=== PATIENT | female | born 1970 | race Caucasian/White ===

== ENCOUNTER 2021-11-07 10:15 | Emergency (ER) | payer OTHER ==
--- OUTSIDE RECORDS SUMMARY | 2021-11-07 10:19 | XMS REPORT | Continuity of Care Document ---
:1970 Author Organization [facility] t Address [address] [place] [address] Care Team Providers Name Role Phone PCP, PATIENT DOES NOT HAVE A Primary Care Physician Unavaila LISETTE Valerio Attending Clinician Unavailable LISETTE DALY Attending Clinician Unavailable Doctor Unassigned, [place] Attending Clinician Unavailable Only, Pcp Test Attending Clinician Unavailable Wayne LECHUGA, Andrea Tillman Attending Clinician Marco Causey MD Attending Clinician DEBRA HOBBS Attending Clinician Unavailable Raquel Tejeda Attending Clinician Debra Hobbs MD Attending Clinician Yue Kim MD Attending Clinician YUE KIM Attending Clinician Unavailable DEBRA HOBBS Admitting Clinician Unavailable Debra Hobbs MD Admitting Clinician Payers Payer Name Policy Type Policy Number Effective Date Expiration Date S ource [employer] [id number] 2021 OUT OF NETWORK 00:00:00 Problems Condition Condition Condition Status Onset Resolution Last Treating Co mments Source Name Details Category Date Date Treatment Clinician Date Elevated Elevated Disease Active 2020-02 Unive rs brain brain 1-27 ity of natriure[place] nat[place] c peptide c peptide 00 Medi cha (BNP) (BNP) Branch level level Chest pain Chest pain Disease Active 2020-02 U nivers 1-26 ity of 00:00: [place] [facility] Obesity Obesity Disease Active 2020-02 Univers (BMI (BMI 1-26 ity of 30-39.9) 30-39.9) 00:00: [place] [facility] Nipple Nipple Disease Active Univers discharge discharge 6-14 ity of 00:00: [place] [facility] Lump or Lump or Disease Active Univers mass in mass in 6-14 ity of breast breast 00:00: [place] [facility] Vaginal Vaginal Disease Active Univers spotting spotting 6-14 ity of 00:00: [place] [facility] Vaginal Vaginal Disease Active Univers discharge discharge 6-14 ity of 00:00: [place] [id number] Medical Branch Essential Essential Disease Active Uni vers hypertensi hypertensi 5-19 it y of on on 00:00: [place] [facility] Bleeding Bleeding Disease Active Unive rs after after 5-19 ity of intercours intercours 00:[place] 00 [place] Nipple Nipple Disease Active Univers discharge discharge 5-19 ity of in female in female 00:00: [facility] Medical Branch Allergies, Adverse Reactions, Alerts Allergy Allergy Status Severity Reaction(s) Onset Inactive Treating Comm ents Source Name Type Date Date Clinician diazepam DA Active U [facility] 10-24 Clear 00:00: Dye [facility] nickel DA Active [place] [facility] 10-24 Clear 00:00: Dye [facility] diazepam DA Active U HYPERACTIVIT HC A Y,ITCHING,HI 10-24 Anna r VES 00:00: Dye [facility] nickel DA Active [place] ITCHINESS, [facility] RASH, HIVES 10-24 Clear 00:00: Dye [facility] Diazepam Propensi Active Unknown - Uni vers ty to See comments 08-12 ity of adverse 00:00: [place] reaction 00 Medical s Branch DIAZEPAM DRUG Active Unknown-Cmnt Un filomena INGREDI 08-12 ity of 00:00: [place] 00 Medical Branch Social History Social Habit Start Date Stop Date Quantity Comments Source Exposure to Not sure [facility] SARS-CoV-2 (event) [place] [facility] [place] History SDOH University o f [facility] History SDOH University o f Alcohol Std Drinks [place] [facility] [place] History SDOH University o f Alcohol Binge [facility] al [place] Alcohol intake 2021-01-13 2021-01-13 0 /d University of 00:00:00 00:00:00 [facility] Alcohol Comment 2015-08-01 2015-08-01 Only drinks Universi ty of 00:00:00 00:00:00 about once a [facility] year. Branch Cigarettes smoked 2014-07-05 2014-07-05 Univers ity of current (pack per 00:00:00 00:00:00 [facility] ) - Reported Branch Cigarette 2014-07-05 2014-07-05 University of pack-years 00:00:00 00:00:00 [facility] Tobacco use and 2014-07-05 2014-07-05 Never used Universit y of exposure 00:00:00 00:00:00 [facility] History of tobacco 2014-07-05 Cigarette Smoker University of use 00:00:00 [facility] Sex Ass[birth year] At [birth year] [facility] 00:[facility]00 [facility] Smoking Status Start Date Stop Date Source [facility] consumption unknown Former smoker 2014-07-05 00:00:00 2014-07-05 University o f [place] 00:00:00 [facility] Medications Ordered Filled Start Stop Current Ordering Indication Dosage Frequency Signature Comments Components Source Medication Medication Date Date Medication? Clinician (SIG) Name Name aspirin 81 2020-02- No [id number] 81mg Take 1 Univers mg chewable 1-28 12-29 tablet by it y of tablet 00:00: 05:59 mouth [place] 00 :00 daily for Medical 30 days. Branch lisinopriL 2020-02- No [id number] 10mg Take 1 Univers 10 mg 1-28 12-29 tablet by ity of tablet 00:00: 05:59 mouth [place] 00 :00 daily for Medical 30 days. Jerome aspirin 81 2020-02- No [id number] 81mg Take 1 Univers mg chewable 03-16- tablet by it y of tablet 00:00: 05:59 mouth [place] 00 :00 daily for Medical 30 days. Branch lisinopriL 2020-02- No [id number] 10mg Take 1 Univers 10 mg 03-16-29 tablet by ity of tablet 00:00: 05:59 mouth [place] 00 :00 daily for Medical 30 days. Jerome aspirin 81 2020-02- No [id number] 81mg Take 1 Univers mg chewable 03-16- tablet by it y of tablet 00:00: 05:59 mouth [place] 00 :00 daily for Medical 30 days. [place] lisinopriL 2020-02- No [id number] 10mg Take 1 Univers 10 mg 03-16 tablet by ity of tablet 00:00: 05:59 mouth [place] 00 :00 daily for Medical 30 days. [place] aspirin 2020-02 Yes 81mg 81 mg, Univers chewable 03-15 Oral, ity of tablet 81 15:00: DAILY, [place] mg 00 First dose Medical on [facility] 01/13/21 at 0900, Until Discontinu ed, Routine enoxaparin 2020-02 Yes 40mg 40 mg, Unive rs (LOVENOX) 03-15 Subcutaneo ity of injection 15:00: [place], [place]ILY, [place] 40 mg 00 First dose Medical on [facility] 01/13/21 at 0900, Until Discontinu ed, Routine lisinopriL 2020-02 Yes 10mg 10 mg, Unive rs (PRINIVIL,Z 03-15 Oral, ity of ESTRIL) 15:00: DAILY, [place] tablet 10 00 First dose Medi cha mg on [facility] 01/13/21 at 0900, Until Discontinu ed, Routine butalbital- 2020-02 Yes 1{tbl} 1 tablet, Univers acetaminoph 03-15 Oral, ity of en-caff 09:16: Q6HPRN, [place] (ESGIC) 24 Starting Medical 50-325-40 on [facility] mg tablet 1 01/13/21 tablet at 0316, Until Discontinu ed, Routine, headache nitroglycer 2020-02 Yes .4mg 0.4 mg, Uni vers in 03-15 Sublingual ity of (NITROSTAT) 04:38: , Q5MIN [place] as sublingual 53 PRN, Medical tablet 0.4 Starting Branc h mg on Fri01/12/21 at 2238, Until Discontinu ed, Routine, Chest pain ondansetron 2020-02 Yes 4mg 4 mg, Slow Univers (ZOFRAN 03-15 IV Push, ity of (PF)) 04:38: Q6HPRN, [place] injection 4 38 Starting Medi cha mg on Fri Branch 01/12/21 at 2238, Until Discontinu ed, Routine, Nausea and Vomiting (N/V) morpHINE 2020-02- No 2mg 2 mg, Slow Un filomena injection 2 03-15 IV Push, ity of mg 04:38: 04:37 Q4HPRN, [place] 30 :30 Starting Medical on Fri Branch 01/12/21 at 2238, Until 01/13/21 at 2237, Routine, Pain (scale 7-10) traMADoL 2020-02- No 50mg 50 mg, Univer s (ULTRAM) 03-15 Oral, ity of tablet 50 04:38: 04:37 Q8HPRN, [place] mg 27 :27 Starting Medical on Fri Branch 01/12/21 at 2238, Until 01/14/21 at 2237, Routine, Pain (scale 4-6) acetaminoph 2020-02 Yes 650mg 650 mg, Un filomena en 03-15 Oral, ity of (TYLENOL) 04:38: Q6HPRN, [place] tablet 650 23 Starting Medic al mg on Fri Branch 01/12/21 at 2238, Until Discontinu ed, Routine, Pain (scale 1-3) ketorolac 2020-02- No 30mg 30 mg, Unive rs (TORADOL) 03-15 Slow IV ity of injection 03:15: 02:12 Push, [place] 30 mg 00 :00 ONCE, 1 Medical dose, On Branch Fri01/12/21 at 2115, MAREK
Fa culty member approving Restricted medication : EMERGENCY ROOM, nitroglycer 2020-02- No .4mg 0.4 mg, Un filomena in 03-15 Sublingual ity of (NITROSTAT) 02:30: 01:57 , ONCE, 1 [place] sublingual 00 :00 dose, On Medic al tablet 0.4 Fri Branch mg 01/12/21 at 2030, MAREK aspirin 2020-02- No 325mg 325 mg, Unive rs tablet 325 03-15 Oral, ity of mg 01:00: 00:06 ONCE, 1 [place] 00 :00 dose, On Medical Fri Branch 01/12/21 at 1900, MAREK iopamidol 2020-02- No [id number] 120mL 120 mL, Univers (ISOVUE 03-15 Intravenou ity o f 370-500 mL) 00:32: 00:33 s, ONCE, 1 [place] injection 00 :00 dose, On Medica l 120 mL Fri Branch 01/12/21 at 1845, Routine nitroglycer 2020-[id number] 1 Univers in 0.4 mg 03-15 tablet ity of sublingual 00:00: under the [place] tablet 00 tongue Medical every 5 Branch (five) minutes as needed for Chest pain. nitroglycer 2020-[id number] 1 Univers in 0.4 mg -27 tablet ity of sublingual 00:00: under the [place] tablet 00 tongue Medical every 5 Branch (five) minutes as needed for Chest pain. nitroglycer 2020-[id number] 1 Univers in 0.4 mg -27 tablet ity of sublingual 00:00: under the [place] tablet 00 tongue Medical every 5 Branch (five) minutes as needed for Chest pain. nitroglycer 2020-[id number] 1 Univers in 0.4 mg -27 tablet ity of sublingual 00:00: under the [place] tablet 00 tongue Medical every 5 Branch (five) minutes as needed for Chest pain. atorvastati 2020-02- No [id number] 40mg Take 1 Univers n (LIPITOR) 03-15 12-28 tablet by it y of 40 mg 00:00: 05:59 mouth at [place] tablet 00 :00 bedtime Medical for 30 Branch days. atorvastati 2020-02- No [id number] 40mg Take 1 Univers n (LIPITOR) 03-15 tablet by it y of 40 mg 00:00: 05:59 mouth at [place] tablet 00 :00 bedtime Medical for 30 Branch days. lisinopril Yes TAKE 1 Unive rs (PRINIVIL,Z 6 TABLET BY ity of ESTRIL) 10 00:00: MOUTH [place] mg tablet 00 EVERY DAY Medic al Branch lisinopril 2020- No TAKE 1 Univ ers (PRINIVIL,Z 6-10 28- TABLET BY it y of ESTRIL) 10 00:00: 00:00 MOUTH [place] mg tablet 00 :00 EVERY DAY Medic al Branch Nitrofurant Yes 100mg Take 1 Cap Univers oin&Nit. 6-05 by mouth ity of Macrocryst 00:00: every 12 [place] as (MACROBID) 00 (twelve) Medic al 100 mg hours. Branch capsule Nitrofurant 2020- No 100mg Take 1 Cap Univers oin&Nit. 6-05 01-13 by mouth ity of Macrocryst 00:00: 00:00 every 12 [place] (MACROBID) 00 :00 (twelve) Medic al 100 mg hours. Branch capsule metroNIDAZO Yes 500mg Take 1 Tab Univers LE (FLAGYL) - by mouth 2 it y of 500 mg 00:00: (two) [place] tablet 00 times Medical daily. Branch metroNIDAZO 2020- No 500mg Take 1 Tab Univers LE (FLAGYL) -01-13 by mouth 2 i ty of 500 mg 00:00: 00:00 (two) [place] tablet 00 :00 times Medical daily. [place] Vital Signs Vital Name Observation Time Observation Value Comments Source Systolic blood 2021-01-13 17:12:00 138 mm[Hg] Univer sity of pressure [facility] Diastolic blood 2021-01-13 17:12:00 88 mm[Hg] Unive rsity of pressure [facility] Heart rate 2021-01-13 17:12:00 77 /min Universi ty of [facility] Body temperature 2021-01-13 17:12:00 36.67 [place] Univ ersity of [facility] Respiratory rate 2021-01-13 17:12:00 16 /min Univ ersity of [place] [facility] Oxygen saturation in 2021-01-13 17:12:00 98 /min University of Arterial blood by [place] [facility] Pulse oximetry Branch Body height 2021-01-13 04:34:00 142.2 cm Universi ty of [place] [facility] Body weight 2021-01-13 04:34:00 68.04 kg Universi ty of [place] [facility] BMI 2021-01-13 04:34:00 33.63 kg/m2 Universi ty of [place] [facility] Systolic blood 2020-03-17 02:56:24 141 mm[Hg] Univer sity of pressure [place] [facility] Diastolic blood 2020-03-17 02:56:24 86 mm[Hg] Unive rsity of pressure [place] [facility] Heart rate 2020-03-17 02:56:24 97 /min Universi ty of [place] [facility] Body temperature 2020-03-17 02:56:24 36.78 [place] Univ ersity of [place] [facility] Respiratory rate 2020-03-17 02:56:24 18 /min Univ ersity of [place] [facility] Oxygen saturation in 2020-03-17 02:56:24 99 /min University of Arterial blood by [facility] Pulse oximetry Branch Body height 2020-03-17 00:51:00 154.9 cm Universi ty of [place] [facility] Body weight 2020-03-17 00:51:00 61.236 kg Universi ty of [place] [facility] BMI 2020-03-17 00:51:00 25.51 kg/m2 Universi ty of [place] [facility] Systolic blood 2020-03-17 02:56:24 141 mm[Hg] Univer sity of pressure [place] [facility] Diastolic blood 2020-03-17 02:56:24 86 mm[Hg] Unive rsity of pressure [place] [facility] Heart rate 2020-03-17 02:56:24 97 /min Universi ty of [place] [facility] Body temperature 2020-03-17 02:56:24 36.78 [place] Univ ersity of [place] [facility] Respiratory rate 2020-03-17 02:56:24 18 /min Univ ersity of [place] [facility] Oxygen saturation in 2020-03-17 02:56:24 99 /min University of Arterial blood by [facility] cha Pulse oximetry Branch Body height 2020-03-17 00:51:00 154.9 cm [facility] Body weight 2020-03-17 00:51:00 61.236 kg [facility] BMI 2020-03-17 00:51:00 25.51 kg/m2 [facility] Procedures Procedure Date / Time Performing Clinician Source Performed ASSIGNMENT OF BENEFITS 2021-04-13 18:53:47 Doctor Unassigned, No [facility] Name [facility] TROPONIN I 2021-01-13 11:55[facility]00 [facility]OLIC [facility] 2021-01-13 11:55:00 [facility] (NA, K, CL, CO2, Medical Branch GLUCOSE, BUN, CREATININE, CA) LIPID PANEL 2021-01-13 11:55:00 [facility] ([id number])(TOTAL Medical Branch CHOLESTEROL, TRIGLYCERIDES, HDL) CBC WITH DIFF 2021-01-13 11:55:00 [facility] GLYCOSYLATED HEMOGLOBIN 2021-01-13 11:55:00 Broderick Russell [facility] (A1C) [facility] CT HEAD WO CONTRAST 2021-01-13 09:43:33 [facility] 2021-01-13 06:10:00 [facility] COVID-19 (ID NOW RAPID 2021-01-13 02:17:00 [facility] TESTING) Medical Branch URINALYSIS 2021-01-13 01:54:00 [facility]GIO[facility] CHEST 2021-01-13 00:38:00 Raquel George [facility] TROPONIN I 2021-01-13 00:23:00 [facility] HEPATIC FUNCTION PANEL 2021-01-13 00:23:00 [facility] ([id number]) (ALB,T.PRO,BILI Medical Branch T,BU/BC,ALT,AST,ALK PHOS) BASIC METABOLIC PANEL 2021-01-13 00:23:00 [facility] ([facility], K, CL, CO2, Medical Branch GLUCOSE, BUN, CREATININE, CA) CBC WITH DIFF 2021-01-13 00:23:00 Bety Georgeanne [facility] PROTHROMBIN TIME / INR 2021-01-13 00:23:00 Ariel [facility] D-DIMER 2021-01-13 00:23:00 [facility] 2021-01-13 00:23:00 Raquel George [facility] XR CHEST 1 VW 2021-01-13 00:08:17 Ariel [facility] CONSENT/REFUSAL FOR 2021-01-12 23:44:55 Doctor Unassigned, No [facility] DIAGNOSIS AND TREATMENT Name [facility] NOTICE OF PRIVACY 2021-01-12 23:44:42 Doctor Unassigned, No Univ [facility] PRACTICES Name [facility] COMP. METABOLIC PANEL 2020-03-17 03:10:00 Ulysses Walter [facility] ([id number]) [facility] XR CHEST 1 VW 2020-03-17 02:08:05 Phill [facility] LIPASE 2020-03-17 01:47:00 Phill [facility] TROPONIN I 2020-03-17 01:47:00 Phill [facility] CBC WITH DIFF 2020-03-17 01:47:00 Phill [facility] PROTHROMBIN TIME / INR 2020-03-17 01:47:00 Ulysses Walter [facility] ACTIVATED PARTIAL 2020-03-17 01:47:00 [facility] THRMPLAS ENRICO [facility] N-TERMINAL PRO-BNP 2020-03-17 01:47:00 Yue Kim [facility] Plan of Care Planned Activity Planned Date Details Comments Source Future Scheduled 2021-10-17 HEPATITIS B VACCINES [facility] Test 13:33:52 (1 of 3 - 3-dose series) [code = HEPATITIS B VACCINES (1 of 3 - 3-dose series)] Future Scheduled 2021-10-17 COVID-19 VACCINE (#1) [facility] Test 13:33:52 [code = COVID-19 VACCINE (#1)] Future Scheduled 2021-10-17 [facility] Test 13:33:52 malignant neoplasm of cervix (procedure) [code = 402939122] Future Scheduled 2021-10-17 [facility] 13:33:52 SCREENING [code = BREAST CANCER SCREENING] Future Scheduled 2021-10-17 COLONOSCOPY SCREENING [facility] Test 13:33:52 [code = COLONOSCOPY SCREENING] Future Scheduled 2021-10-17 INFLUENZA VACCINE [facility] Test 13:33:52 [code = INFLUENZA VACCINE] Encounters Start End Encounter Admission Attending Care Care Encounter Source Date/Time Date/Time Type Type Clinicians Facility Department ID 2020-03-16 Inpatient HCACL GUZMAN [id number] [facility] 22:55:00 98 [facility] 2021-04-13 2021-04-13 Outpatient LISETTE RAMIREZ [facility] [id number] Univers 13:00:00 14:01:[address] [facility] 2021-04-13 2021-04-13 Orders Doctor ULYSSES [id number] Univers 00:00:00 00:00:00 Only UnassNORMA haines [id number] ity of [place] [facility] [id number] [place] [phone] [facility] cha 009 Branch 2021-02-07 2021-02-07 Laboratory Only, Pcp Test [facility] 1.2.840. [id number] Univers 10:30:00 10:45:00 Only Andrea Black PRIMARY [id number] ity of [place] 4[place]7.2.686 [place] [facility] [id number] Tn dical 366 Branch 2021-01-14 2021-01-14 Telephone ULYSSES Causey [id number] Univers 00:00:00 00:00:00 Marco GREEN [id number] i ty of HOSPITAL 4.2.7.2.686 [place] [id number] [facility] hca 008 Branch 2021-01-12 2021-01-13 [facility] [id number] Univers 17:50:00 14:02:[address] [facility] 2021-01-12 2021-01-13 Emergency Raquel George [facility] 1.2.840 .[id number] Univers 17:50:00 14:02:00 Debra Hobbs [id number] ity of [place] 4.2.7.2.686 [facility] [id number] [place] [id number] Branch 2020-03-16 2020-03-16 Emergency [facility] [id number] Univers 19:02:00 22:42:00 [facility] [id number] it y of Clear [id number] [facility] [id number] [facility] 014 Branch ([facility]) 2020-03-16 2020-03-16 Emergency [facility] [id number] 19:02:00 22:42:00 [facility] [id number] [place] 4.2.7.2.686 [place] [phone] [place] [address] ([facility]) 2020-03-16 2020-03-16 Emergency X [facility] ERT [id number] Univers 19:02:00 19:02:00 [facility] Results Test Description Test Time Test Comments Results Result Comments Source GLYCOSYLATED HEMOGLOBIN (A1C) 2021-01-13 15:04:45 Test Item Value Reference Range Interpretation Comme nts HGB A1C (test code = 4548-4) 5.1 % 4.0-5.7 ANGLE (test code = ANGLE) Reference RangesNormal: <5.7%Prediabetes: 5.7 - 6.4%Diabetes: > 6.5% Lab Interpretation (test code = Normal 46215-0) [facility] [id number] 13:58:40 Test Item Value Reference Interpretation Comments Range TROPONIN I (test 0.001 ng/mL See_Comment [Automated code = 0575398947) message] The system which generated this result transmitted reference range : <=0.034. The reference range was not used to interpret this result as normal/abnormal . ANGLE (test code = Reference (Normal) ANGLE) Range (defined by the 99th percentile reference limit): <= 0.034 ng/mL Note: Cardiac troponin begins to rise 3-4 hours after the onset of ischemia. Repeat in 4-6 hours if the sample was drawn within 3-4 hours of the onset of the symptom and found normal. Diagnosis of myocardial injury is made with acute changes in cTn concentrations with at least one serial sample above the 99th percentile upper reference limit (URL), taken together with the patient's clinical presentation. Biotin has been reported to cause a negative bias, interpret results relative to patient's use of biotin. Lab Interpretation Normal (test code = 78881-3) [facility] ([id number])(TOTAL CHOLESTEROL, TRIGLYCERIDES, HDL)2021-01-13 13:48:00 Test Item Value Reference Range Interpretation Comments CHOL (test code = 207 mg/dL 120-200 H 2046940347) HDL (test code = 35 mg/dL >50 L 4092097274) HDLC RATIO (test code = See_Comment H [Au tomated message] [id number]) The system [employer] generated this result transmit krystin reference range : <=4.5. The refe rence range was not u sed to interpret th is result as normal/abnormal . TRIG (test code = 229 mg/dL 30-170 H 4313801322) LDL CHOL (test code = 126 mg/dL See_Comment [Auto mated message] 42102-5) The system [employer] generated this result transmit krystin reference range : <=160. The refe rence range was not u sed to interpret th is result as normal/abnormal . VLDL (test code = 46 mg/dL 5-60 2608017360) Lab Interpretation (test Abnormal code = 72391-1) [facility] (NA, K, CL, CO2, GLUCOSE, BUN, CREATININE, CA)2021-01-13 13:47:39 Test Item Value Reference Range Interpretation Comments NA (test code = 137 mmol/L 135-145 2871777219) K (test code = 4.2 mmol/L 3.5-5.0 7291849209) CL (test code = 105 mmol/L 98-108 2274745423) CO2 TOTAL (test code 26 mmol/L 23-31 = 6116153784) AGAP (test code = 2-16 3245978866) BUN (test code = 18 mg/dL 7-23 2246225214) GLUCOSE (test code = 86 mg/dL 70-110 8609137080) CREATININE (test code 0.58 mg/dL 0.50-1.04 = 2289432817) CALCIUM (test code = 9.5 mg/dL 8.6-10.6 7525538695) eGFR (test code = mL/min/1.73m2 1003684708) ANGLE (test code = ANGLE) Association of Glomerular Filtration Rate (GFR) and Staging of Kidney Disease* + + +- +| GFR (mL/min/1.73 m2) ?| With Kidney Damage ?| ?Without Kidney Damage+ ------+ ----+ ------+| ?>90 ?| ?Stage one ?| ? Normal ?+ -+ + -+| ?60-89 ?| ?Stage two ?| ? Decreased GFR ? + + +- +| ?30-59 ?| ?Stage three ?| ? Stage three ? + + +- +| ?15-29 ?| ?Stage four ? | ? Stage four ?+ -+ + -+| ?<15 (or dialysis) ? ?| ?Stage five ? | ? Stage five ?+ -+ + -+ *Each stage assumes the associated GFR level has been in effect for at least three months. ?Stages 1 to 5, with or without kidney disease, indicate chronic kidney disease. Notes: Determination of stages one and two (with eGFR >59mL/min/1.73 m2) requires estimation of kidney damage for at least three months as defined by structural or functional abnormalities of the kidney, manifested by either:Pathological abnormalities or Markers of kidney damage (including abnormalities in the composition of the blood or urine or abnormalities in imaging tests). [facility] with [id number] 13:04:15 Test Item Value Reference Range Interpretation Comments WBC (test code = See_Comment [Automated 6690-2) message] The sy stem which generated this result transmitted reference range : 4.30 - 11.10 10*3/?L. The reference range was not used to interpret this result as normal/abnormal . RBC (test code = See_Comment [Automated 789-8) message] The sy stem which generated this result transmitted reference range : 3.93 - 5.25 10*6/?L. The reference range was not used to interpret this result as normal/abnormal . HGB (test code = 13.1 g/dL 11.6-15.0 718-7) HCT (test code = 38.9 % 35.7-45.2 4544-3) MCV (test code = 92.4 fL 80.6-95.5 787-2) MCH (test code = 31.1 pg 25.9-32.8 785-6) MCHC (test code = 33.7 g/dL 31.6-35.1 786-4) RDW-SD (test code = 39.8 fL 39.0-49.9 57590-8) RDW-CV (test code = 11.9 % 12.0-15.5 L 788-0) PLT (test code = See_Comment [Automated 777-3) message] The sy stem which generated this result transmitted reference range : 166 - 358 10*3/ ?L. The reference r marian was not used to interpret this result as normal/abnormal . MPV (test code = 10.5 fL 9.5-12.9 37982-3) NRBC/100 WBC (test See_Comment [Automat ed code = 6330996871) message] The system which generated this result transmitted reference range : 0.0 - 10.0 /100 WBCs. The refer ence range was not u sed to interpret th is result as normal/abnormal . NRBC x10^3 (test code <0.01 See_Comment [Auto mated = 7299860958) message] The s ystem which generated this result transmitted reference range : 10*3/?L. The reference range was not used to interpret this result as normal/abnormal . GRAN MAT (NEUT) % 52.5 % (test code = 770-8) IMM GRAN % (test code 0.40 % = 0162418520) LYMPH % (test code = 32.1 % 736-9) MONO % (test code = 9.8 % 5905-5) EOS % (test code = 4.5 % 713-8) BASO % (test code = 0.7 % 706-2) GRAN MAT x10^3(ANC) 2.89 10*3/uL 1.88-7.09 (test code = 2478546980) IMM GRAN x10^3 (test <0.03 0.00-0.06 code = 7816695594) LYMPH x10^3 (test code 1.77 10*3/uL 1.32-3.29 = 731-0) MONO x10^3 (test code 0.54 10*3/uL 0.33-0.92 = 742-7) EOS x10^3 (test code = 0.25 10*3/uL 0.03-0.39 711-2) BASO x10^3 (test code 0.04 10*3/uL 0.01-0.07 = 704-7) Lab Interpretation Abnormal (test code = 03634-7) [facility] [id number] 07:16:35 Test Item Value Reference Interpretation Comments Range TROPONIN I (test 0.005 ng/mL See_Comment [Automated code = 6699302530) message] The system which generated this result transmitted reference range : <=0.034. The reference range was not used to interpret this result as normal/abnormal . ANGLE (test code = Reference (Normal) ANGLE) Range (defined by the 99th percentile reference limit): <= 0.034 ng/mL Note: Cardiac troponin begins to rise 3-4 hours after the onset of ischemia. Repeat in 4-6 hours if the sample was drawn within 3-4 hours of the onset of the symptom and found normal. Diagnosis of myocardial injury is made with acute changes in cTn concentrations with at least one serial sample above the 99th percentile upper reference limit (URL), taken together with the patient's clinical presentation. Biotin has been reported to cause a negative bias, interpret results relative to patient's use of biotin. Lab Interpretation Normal (test code = 65134-8) [facility] (08937) (ALB,T.PRO,BILI T,BU/BC,ALT,AST,ALK PHOS)2021-01-13 01:06:59 Test Item Value Reference Range Interpretation Comments TOTAL BILI (test code = 5480203348) 0.4 mg/dL 0.1-1.1 BILI UNCON (test code = 3373507723) 0.3 mg/dL 0.1-1.1 BILI CONJ (test code = 6057500184) 0.0 mg/dL 0.0-0.3 T PROTEIN (test code = 8007420721) 7.0 g/dL 6.3-8.2 ALBUMIN (test code = 9883815847) 4.3 g/dL 3.5-5.0 ALK PHOS (test code = 3803876598) 64 U/L 34-122 ALTv (test code = 1742-6) 18 U/L 5-35 AST(SGOT) (test code = 0812219974) 20 U/L 13-40 Lab Interpretation (test code = Normal 38088-4) [facility] [id number] 00:58:41 Test Item Value Reference Interpretation Comments Range TROPONIN I (test 0.003 ng/mL See_Comment [Automated code = 7820100025) message] The system which generated this result transmitted reference range : <=0.034. The reference range was not used to interpret this result as normal/abnormal . ANGLE (test code = Reference (Normal) ANGLE) Range (defined by the 99th percentile reference limit): <= 0.034 ng/mL Note: Cardiac troponin begins to rise 3-4 hours after the onset of ischemia. Repeat in 4-6 hours if the sample was drawn within 3-4 hours of the onset of the symptom and found normal. Diagnosis of myocardial injury is made with acute changes in cTn concentrations with at least one serial sample above the 99th percentile upper reference limit (URL), taken together with the patient's clinical presentation. Biotin has been reported to cause a negative bias, interpret results relative to patient's use of biotin. Lab Interpretation Normal (test code = 34983-8) [facility] [id number] 00:55:40 Test Item Value Reference Range Interpretation Comments NT-proBNP (test code 285 pg/mL See_Comment H [Autom ated = 9757115534) message] The system which generated this result transmitted reference range : <=125. The reference range was not used to interpret this result as normal/abnormal . ANGLE (test code = ANGLE) Biotin has been reported to cause a negative bias, interpret results relative to patient's use of biotin. Lab Interpretation Abnormal (test code = 62233-5) [facility]D-[id number] 00:49:58 Test Item Value Reference Interpretation Comments Range D-DIMER (test code = See_Comment [Autom ated 7820896290) message] The system which generated this result transmitted reference range : <0.41 ?g/mL (FEU). The reference range was not used to interpret this result as normal/abnormal . ANGLE (test code = This test may be ANGLE) used in conjunction with a clinical pretest probability (PTP) assessment model to exclude venous thromboembolism (VTE) in patients suspected of deep venous thrombosis (DVT) and pulmonary embolism (PE) A D-Dimer value less than 0.50 ?g/ml (FEU) has a negative predicative value of 96 to 100% (95% CI)and 97 to 100% (95% CI) as an aid in the diagnosis of deep vein thrombosis (DVT) and pulmonary embolism when there is low or moderate pretest probability of PE or DVT. D-Dimer values are expressed in initial fibrinogen equivalent units (FEU)" The assay results should be used with other information, including the clinical context, in forming a diagnosis. Lab Interpretation Normal (test code = 74391-4) [facility]OLIC PAN[facility] (NA, K, CL, CO2, GLUCOSE, BUN, CREATININE, CA)2021-01-13 00:47:18 Test Item Value Reference Range Interpretation Comments NA (test code = 140 mmol/L 135-145 9132468329) K (test code = 4.3 mmol/L 3.5-5.0 5008451058) CL (test code = 106 mmol/L 98-108 5823874442) CO2 TOTAL (test code 29 mmol/L 23-31 = 8502958008) AGAP (test code = 2-16 6718842365) BUN (test code = 17 mg/dL 7-23 1967162976) GLUCOSE (test code = 96 mg/dL 70-110 5660860789) CREATININE (test code 0.75 mg/dL 0.50-1.04 = 0948081042) CALCIUM (test code = 10.3 mg/dL 8.6-10.6 8969814492) eGFR (test code = mL/min/1.73m2 0997486938) ANGLE (test code = ANGLE) Association of Glomerular Filtration Rate (GFR) and Staging of Kidney Disease* + + +- +| GFR (mL/min/1.73 m2) ?| With Kidney Damage ?| ?Without Kidney Damage+ ------+ ----+ ------+| ?>90 ?| ?Stage one ?| ? Normal ?+ -+ + -+| ?60-89 ?| ?Stage two ?| ? Decreased GFR ? + + +- +| ?30-59 ?| ?Stage three ?| ? Stage three ? + + +- +| ?15-29 ?| ?Stage four ? | ? Stage four ?+ -+ + -+| ?<15 (or dialysis) ? ?| ?Stage five ? | ? Stage five ?+ -+ + -+ *Each stage assumes the associated GFR level has been in effect for at least three months. ?Stages 1 to 5, with or without kidney disease, indicate chronic kidney disease. Notes: Determination of stages one and two (with eGFR >59mL/min/1.73 m2) requires estimation of kidney damage for at least three months as defined by structural or functional abnormalities of the kidney, manifested by either:Pathological abnormalities or Markers of kidney damage (including abnormalities in the composition of the blood or urine or abnormalities in imaging tests). [facility] HospitalPROT[facility] TIME / [id number] 00:45:39 Test Item Value Reference Range Interpretation Comments PROTIME PATIENT (test See_Comment L [Auto mated message] code = 5964-2) The system [employer] generated this result transmitted ref erence range: 12.0 - 1 4.7 Seconds. The reference range was not used to int erpret this result as normal/abnormal . INR (test code = 6301-6) Nor mal INR <1.1; Warfarin Therap eutic range 2.0 to 3. 0 or 2.5 to 3.5, dep ending upon the indica tions. Lab Interpretation (test Abnormal code = 58548-5) [facility] WITH [id number] 00:35:19 Test Item Value Reference Range Interpretation Comments WBC (test code = See_Comment [Automated 6690-2) message] The sy stem which generated this result transmitted reference range : 4.30 - 11.10 10*3/?L. The reference range was not used to interpret this result as normal/abnormal . RBC (test code = See_Comment [Automated 789-8) message] The sy stem which generated this result transmitted reference range : 3.93 - 5.25 10*6/?L. The reference range was not used to interpret this result as normal/abnormal . HGB (test code = 14.4 g/dL 11.6-15.0 718-7) HCT (test code = 42.4 % 35.7-45.2 4544-3) MCV (test code = 92.6 fL 80.6-95.5 787-2) MCH (test code = 31.4 pg 25.9-32.8 785-6) MCHC (test code = 34.0 g/dL 31.6-35.1 786-4) RDW-SD (test code = 40.6 fL 39.0-49.9 87346-3) RDW-CV (test code = 11.9 % 12.0-15.5 L 788-0) PLT (test code = See_Comment [Automated 777-3) message] The sy stem which generated this result transmitted reference range : 166 - 358 10*3/ ?L. The reference r marian was not used to interpret this result as normal/abnormal . MPV (test code = 10.0 fL 9.5-12.9 11779-9) NRBC/100 WBC (test See_Comment [Automat ed code = 4034139706) message] The system which generated this result transmitted reference range : 0.0 - 10.0 /100 WBCs. The refer ence range was not u sed to interpret th is result as normal/abnormal . NRBC x10^3 (test code <0.01 See_Comment [Auto mated = 9608477302) message] The s ystem which generated this result transmitted reference range : 10*3/?L. The reference range was not used to interpret this result as normal/abnormal . GRAN MAT (NEUT) % 58.2 % (test code = 770-8) IMM GRAN % (test code 0.30 % = 6203345622) LYMPH % (test code = 30.3 % 736-9) MONO % (test code = 6.8 % 5905-5) EOS % (test code = 3.8 % 713-8) BASO % (test code = 0.6 % 706-2) GRAN MAT x10^3(ANC) 3.65 10*3/uL 1.88-7.09 (test code = 1599795589) IMM GRAN x10^3 (test <0.03 0.00-0.06 code = 8801612271) LYMPH x10^3 (test code 1.90 10*3/uL 1.32-3.29 = 731-0) MONO x10^3 (test code 0.43 10*3/uL 0.33-0.92 = 742-7) EOS x10^3 (test code = 0.24 10*3/uL 0.03-0.39 711-2) BASO x10^3 (test code 0.04 10*3/uL 0.01-0.07 = 704-7) Lab Interpretation Abnormal (test code = 80970-6) [facility]- DUP EXTRACRANIAL [id number] 15:52:00 [facility] CHASE DYEName: GABE GRIER : 1970 Sex: F Name: GABE GRIER [facility] [place] : 1970 Age/S: 49 / F [address] [place] [address] Unit #: [id number] Loc: [place] [address] Phys: Edgardo Carrero BIOLOGY INSTRUCTOR Acct: [id number] Dis Date: Status: ADM INPHONE #: [phone] Exam Date: 03/17/20201 FAX #: [phone] Reason: dizziness daily EXAMS: CPT CODE: [id number] DUP EXTRACRANIAL NARCISO 61701 Clinical Indication: Dizziness; Comparison: None TECHNIQUE: Connell-scale, color Doppler and spectral Doppler of the carotid arteries was performed. Any reported ICA stenoses indirectly reference the distal internal carotid diameter as the denominator for thestenosis measurement, utilizing consensus panel criteria. FINDINGS: RIGHT: Mild plaque formation. ICA PSV 70 cm/sec CCA PSV 93 cm/sec ICA/CCA ratio 0.7 Vertebral flow is antegrade. External carotid artery is patent. LEFT: Mild plaque formation. ICA PSV 111 cm/sec CCA PSV 81 cm/sec ICA/CCA ratio 1.4 Vertebral flow is antegrade. External carotid artery is patent. IMPRESSION: RIGHT: ICA stenosis <50 % by velocity criteria. LEFT: ICA stenosis <50 % by velocity criteria. Consensus panel Doppler US criteria for diagnosis of ICA stenosis: Stenosis (%) ICA PSV (cm/sec) ICA/CCA ratio ------ <50 <125 <2.0 50-69 125-230 2.0-4.0 >70 but less than >230 >4.0 near occlusion Near occlusion High, low, or Variable undetectable PAGE 1 Signed Report (CONTINUED) Name: GABE GRIER [facility] [place] : 1970 Age /S: 49 / F [address] [place] [address] Blvd Unit #: [id number] Loc: [place] [address] Phys: Edgardo Carrero BIOLOGY INSTRUCTOR Acct: [id number] Dis Date: Status: ADM IN PHONE #: [phone] Exam Date: 03/17/2020 FAX #: [phone] Reason: dizziness daily EXAMS: CPT CODE: [id number] DUP EXTRACRANIAL NARCISO 07215 (Continued) SL: [id number] at 1552 Reported and signed by: Britt Leon M.D. CC: Edgardo Carrero BIOLOGY INSTRUCTOR; Elmer Manuel MD Technologist: Abby Barrientos RDMS(AB) Trnscb Date/Time: 03/17/2020 (1552) [id number] Orig Print D/T: S: 03/17/2020 (4475) Probe: PAGE 2 Signed [id number] 11:50:00 Test Item Value Reference Range Interpretation Comments TROPONIN-I < 0.006 ng/mL 0.000-0.045 N Negative: <= 0 .045 Positive: (test code = >= 0.046 Correl ation with TROPI) serial results, other cardiac markers andclinical findings is nec essary to determine the clinicalsignifi cance of this result. Results using different metho dologies should not be c omparedto one another as sarah titative results may tremayne y by method. [id number] 04:44:00 Test Item Value Reference Range Interpretation Comments TROPONIN-I 0.008 ng/mL 0.000-0.045 N Negative: <= 0. 045 Positive: (test code = >= 0.046 Correl ation with TROPI) serial results, other cardiac markers andclin ical findings is necessary to determine the clinicalsignifi cance of this result. Results using different metho dologies should not be c omparedto one another as sarah titative results may tremayne y by method. COMP. METABOLIC PANEL (95845)2020-03-17 03:39:00 Test Item Value Reference Range Interpretation Comments NA (test code = 139 mmol/L 135-145 8380788559) K (test code = 4.4 mmol/L 3.5-5 3902050712) CL (test code = 100 mmol/L 98-108 0761371374) CO2 TOTAL (test code = 32 mmol/L 23-31 H 3327468902) AGAP (test code = 2-16 1523802750) BUN (test code = 22 mg/dL 7-23 9796013119) GLUCOSE (test code = 115 mg/dL 70-110 H 1792060315) CREATININE (test code = 0.62 mg/dL 0.5-1.04 6541493981) TOTAL BILI (test code = 0.1 mg/dL 0.1-1.6 2084517692) CALCIUM (test code = 9.7 mg/dL 8.6-10.6 9365824253) T PROTEIN (test code = 6.4 g/dL 6.3-8.2 1065409083) ALBUMIN (test code = 4.1 g/dL 3.5-5 6823077769) ALK PHOS (test code = 92 U/L 34-122 8350961163) ALTv (test code = 14 U/L 5-35 1742-6) AST(SGOT) (test code = 18 U/L 13-40 6730038666) eGFR Calculation mL/min/1.73m2 (Non-) (test code = 9431033874) eGFR Calculation mL/min/1.73m2 () (test code = 5881836165) ANGLE (test code = ANGLE) Association of Glomerular Filtration Rate (GFR) and Staging of Kidney Disease* + --+ --+ ------+| GFR (mL/min/1.73 m2) ?| With Kidney Damage ?| ?Without Kidney Damage+ --------+ --------+ +| ?>90 ?| ?Stage one ?| ? Normal ?+ ---+ ---+ -------+| ?60-89 ?| ?Stage two ?| ? Decreased GFR ? + --+ --+ ------+| ?30-59 ?| ?Stage three ?| ? Stage three ? + --+ --+ ------+| ?15-29 ?| ?Stage four ? | ? Stage four ?+ ---+ ---+ -------+| ?<15 (or dialysis) ? ?| ?Stage five ? | ? Stage five ?+ ---+ ---+ -------+ *Each stage assumes the associated GFR level has been in effect for at least three months. ?Stages 1 to 5, with or without kidney disease, indicate chronic kidney disease. Notes: Determination of stages one and two (with eGFR >59mL/min/1.73 m2) requires estimation of kidney damage for at least three months as defined by structural or functional abnormalities of the kidney, manifested by either:Pathological abnormalities or Markers of kidney damage (including abnormalities in the composition of the blood or urine or abnormalities in imaging tests). Lab Interpretation Abnormal (test code = 36443-4) [facility] CHEST 1 [id number] 03:10:33Impression: No acute abnormalities evident. RL: 460 End of Report Ordering Physician: PENELOPE WALTER History: ?Chest pain Technique: Chest,single view Comparison: None Findings: ? The lungs are clear. No pleural effusions are evident. Heart size isnormal. The superior mediastinal silhouette is unremarkable for age andprojection. There arehealed left-sided rib fractures. No acute bonyabnormalities are apparent. Inmb, Radiant Results InftUser - 03/16/2020 9:11 PM CSTOrdering Physician: ULYSSES WALTERHistory: Chest painTechnique: Chest, single viewComparison: NoneFindings: The lungs are clear. No pleural effusions are evident. Heart size isnormal. The superior mediastinal silhouette is unremarkable for age andprojection. There are healed l eft-sided rib fractures. No acute bonyabnormalities are apparent.IMPRESSIONImpression:No acute abnormalities evident.RL: 460End of Report [facility] CenterTROP[facility]IN [id number] 02:23:00 Test Item Value Reference Range Interpretation Comments TROPONIN I (test 0.009 ng/mL See_Comment [Automated code = 5753552377) message] The system which generated this result transmitted reference range : <=0.034. The reference range was not used to interpret this result as normal/abnormal . ANGLE (test code = Equal or Less than ANGLE) 0.034 ng/ml---Normal ?Note: Cardiac troponin begins to rise 3-4 hours after the onset of ischemia. Repeat in 4-6 hours if the sample was drawn within 3-4 hours of the onset of the symptom and found normal. Between 0.035 and 0.120 ng/mL--- Borderline. Questionable myocardial injury or necrosis ? ?Note: Serial measurement may be necessary to confirm or exclude the diagnosis of myocardial injury or necrosis; Clinical correlation (symptoms, EKGs, imaging studies, and others) required; Repeat in 4-6 hours if clinically indicated. ? Equal or Higher than 0.121 ng/mL---Abnormal. Myocardial Injury or Necrosis Likely ? Biotin has been reported to cause a negative bias, interpret results relative to patient's use of biotin. ? Lab Interpretation Normal (test code = 75309-2) [facility] [id number] 02:23:00 Test Item Value Reference Range Interpretation Comments NT-proBNP (test code 421 pg/mL See_Comment H [Autom ated = 9765489046) message] The system which generated this result transmitted reference range : <=125. The reference range was not used to interpret this result as normal/abnormal . ANGLE (test code = ANGLE) Biotin has been reported to cause a negative bias, interpret results relative to patient's use of biotin. Lab Interpretation Abnormal (test code = 33489-4) [facility] HospitalPROTHROMBIN TIME / [id number] 02:16:00 Test Item Value Reference Range Interpretation Comments PROTIME PATIENT (test See_Comment L [Auto mated message] code = 5964-2) The system wh ich generated this result transmitted ref erence range: 10.1 - 1 2.6 Seconds. The reference range was not used to int erpret this result as normal/abnormal . INR (test code = 6301-6) Nor mal INR <1.1; Warfarin Therap eutic range 2.0 to 3. 0 or 2.5 to 3.5, dep ending upon the indica tions. Lab Interpretation (test Abnormal code = 68069-5) [facility]- CTA CHEST FOR [id number] 02:13:00 [facility] CHASE DYEName: GABE GRIER : 1970 Sex: F Name: GABE GRIER [facility] [place] : 1970 Age/S: 49 / F [address] [place] [address] Blvd Unit #: [id number] Loc: [place] [address] Phys: Jay Hanna MD Acct: [id number] Dis Date: Status: REG ER PHONE #: [phone] Exam Date: 03/17/2020126 FAX #: [phone] Reason: CHEST P[AIN EXAMS: CPT CODE: [id number] [place] [address] EXAM: CT, CTA CHEST W CONTRAST: 03/17/2020, 0129 hours Clinical Indication: Chest pain. Evaluate for pulmonary embolism. Comparison: Chest radiograph dated 03/16/2020, 2322 hours. TECHNIQUE: CTA of the pulmonary arteries was performed with 100 cc Isovue intravenous contrast. Helical imaging performed apices to the lung bases. Multiplanar reconstructions were obtained. 3-D postprocessing reconstruction MIP imaging was performed. CT imaging was performed with exposure control parameters to reduce radiation dose. All CT scans at this location are performed using dose optimization techniques as appropriate to perform exam including the following: * Automated exposure control * Adjustment of the mA and /or kV according to patient size (this includes techniques or standardized protocols for targeted exams where dose is matched to indication/reason for exam; extremities or head) * Use of iterative reconstruction technique CT Radiation Dose DLP: 193.32 mGy-cm FINDINGS: VASCULAR STRUCTURES: No segmental pulmonary emboli noted. The main, right and left pulmonary arteries are normal. The thoracic aorta is within normal limits. There is no dissection or aneurysm. The great vessels appear unremarkable. The superior vena cava is unremarkable. HEART: The cardiac chambers are unremarkable. There is no CT evidence of right ventricular strain. There is no pericardial effusion. LUNG PARENCHYMA AND PLEURA: Mild dependent atelectasis in the posterior lung bases. No airspace consolidation or pulmonary mass identified. There are no pleural effusions. There is no pneumothorax. AIRWAYS: The central airway is unremarkable. Trachea is midline. MEDIASTINUM: No significant mediastinal lymphadenopathy. PAGE 1 Signed Report (CONTINUED) Name: GABE GRIER [facility] : 1970 Age/S: 49 / F [address] [place] [address] Blvd Unit #: [id number] Loc: [place] [address] Phys: Jay Hanna MD Acct: [id number] Dis Date: Status: REG ER PHONE #: [phone] Exam Date: 03/17/2020126 FAX #: [phone] Reason: CHEST P[AIN EXAMS: CPT CODE: [id number] [place] [address](Continued) VISUALIZED UPPER ABDOMEN: Small hiatal hernia seen. OSSEOUS STRUCTURES: No acute abnormality seen. IMPRESSION: 1. No segmental pulmonary embolism or thoracic aortic dissection. SL: EDER at 0213 Reported and signed by: Gilbert Sibley M.D. CC: Jay Hanna MD Technologist:Nirmala Roca RT(R)(CT) CTDI: DLP: Trnscb Date/Time: 03/17/2020 (212) [id number] Orig Print D/T: S: 03/17/2020 (215) PAGE 2 Signed ReportLIPASE, [id number] 02:11:00 Test Item Value Reference Range Interpretation Comments LIPASE (test code = 2312491422) 165 U/L 0-220 Lab Interpretation (test code = Normal 25093-9) [facility] HospitalaPTT2021-01-29 02:10:00 Test Item Value Reference Range Interpretation Comments APTT Patient (test code = See_Comment [ Automated message] 3173-2) The system [employer] generated this result transmitted ref erence range: 26 - 36 Seconds. The re ference range was not u sed to interpret this result as normal/abnor mal. Lab Interpretation (test Normal code = 90074-8) [facility] WITH [id number] 02:05:00 Test Item Value Reference Range Interpretation Comments WBC (test code = See_Comment [Automated 6690-2) message] The sy stem which generated this result transmitted reference range : 4.30 - 11.10 10*3/?L. The reference range was not used to interpret this result as normal/abnormal . RBC (test code = See_Comment [Automated 789-8) message] The sy stem which generated this result transmitted reference range : 3.93 - 5.25 10*6/?L. The reference range was not used to interpret this result as normal/abnormal . HGB (test code = 16.0 g/dL 11.6-15 H 718-7) HCT (test code = 48.5 % 35.7-45.2 H 4544-3) MCV (test code = 94.9 fL 80.6-95.5 787-2) MCH (test code = 31.3 pg 25.9-32.8 785-6) MCHC (test code = 33.0 g/dL 31.6-35.1 786-4) RDW-SD (test code = 42.3 fL 39-49.9 87229-3) RDW-CV (test code = 12.2 % 12-15.5 788-0) PLT (test code = See_Comment [Automated 777-3) message] The sy stem which generated this result transmitted reference range : 166 - 358 10*3/ ?L. The reference r marian was not used to interpret this result as normal/abnormal . MPV (test code = 10.6 fL 9.5-12.9 51467-7) NRBC/100 WBC (test See_Comment [Automat ed code = 9957184840) message] The system which generated this result transmitted reference range : 0.0 - 10.0 /100 WBCs. The refer ence range was not u sed to interpret th is result as normal/abnormal . NRBC x10^3 (test code <0.01 See_Comment [Auto mated = 8953960137) message] The s ystem which generated this result transmitted reference range : 10*3/?L. The reference range was not used to interpret this result as normal/abnormal . GRAN MAT (NEUT) % 56.1 % (test code = 770-8) IMM GRAN % (test code 0.30 % = 4336363801) LYMPH % (test code = 31.7 % 736-9) MONO % (test code = 7.1 % 5905-5) EOS % (test code = 4.0 % 713-8) BASO % (test code = 0.8 % 706-2) GRAN MAT x10^3(ANC) 4.32 10*3/uL 1.88-7.09 (test code = 8505859062) IMM GRAN x10^3 (test <0.03 0-0.06 code = 3493025652) LYMPH x10^3 (test code 2.44 10*3/uL 1.32-3.29 = 731-0) MONO x10^3 (test code 0.55 10*3/uL 0.33-0.92 = 742-7) EOS x10^3 (test code = 0.31 10*3/uL 0.03-0.39 711-2) BASO x10^3 (test code 0.06 10*3/uL 0.01-0.07 = 704-7) Lab Interpretation Abnormal (test code = 69883-7) [facility]- CT HEAD/BRAIN W/O [id number] 01:54:00 [facility] 1970 Sex: F Name: GABE GRIER [facility] : 1970 Age/S: 49 / F [address] [place] [address] Unit #: [id number] Loc: [place] [address] Phys: Jay Hanna MD Acct: [id number] Dis Date: Status: REG ER PHONE #: [phone] Exam Date: 03/17/2020 0126 FAX #: [phone] Reason: HEAD TRAUMA WITH PAINEXAMS: CPT CODE: [id number] CT HEAD/BRAIN W/O CONT 28701 EXAM: CT, CT HEAD/BRAIN W/O CONTRAST: 03/17/2020, 0126 hours HISTORY: HEAD TRAUMA WITH PAIN COMPARISON: None available. TECHNIQUE: CT images were obtained from the foramen magnum to the vertex without the use of intravenous contrast on a multidetector CT. CT imaging was performed with exposure control parameters to reduce radiation dose. Coronal and sagittal reconstructions were obtained. All CT scans at this location are performed using dose optimization techniques as appropriate to perform exam including the following: * Automated exposure control * Adjustment of the mA and /or kV according to patient size (this includes techniques or standardized protocols for targeted exams where dose is matched to indication/reason for exam; extremitiesor head) * Use of iterative reconstruction technique CT radiation dose DLP: 554.15 mGy-cm FINDINGS:Beam hardening artifact limits the optimal evaluation of the base of brain and posterior fossa BRAINPARENCHYMA: The brain parenchyma is normal with normal hammer and white interfaces. The periventricular white matter appears unremarkable. No focal mass lesions on this noncontrast head CT. No mass effect, midline shift or edema. There are no intra- axial or extra-axial fluid collections, intraventricular or intraparenchymal hemorrhage. No low attenuation demarcating areas on this non-contrast CT to sugg est subacute stroke. VENTRICLES: The lateral ventricles, third and fourth ventricles appear unremarkable. The basilar cisterns are normal. ORBITS, MASTOIDS AND PARANASAL SINUSES: The visualized orbits are unremarkable. The visualized paranasal sinuses are unremarkable. Bilateral mastoid effusion. SKULL : There are no osseous abnormalities. If there is further concern for intracranial pathology or acute stroke, MRI of the brain may be performed for complete assessment. PAGE 1 Signed Report (CONTINUED) Name: GABE GRIER [facility] : 1970 Age/S: 49 / F [address] [place] [address] Unit #: [id number] Loc: [place] [address] Phys: Jay Hanna MD Acct: [id number] Dis Date: Status: REG ER PHONE #: [phone] Exam Date: 03/17/2020125 FAX #: [phone] Reason: HEAD TRAUMA WITH PAIN EXAMS: CPT CODE: [id number] CT HEAD/BRAIN W/O CONT 95662 (Continued) IMPRESSION: 1. No acute intracranial abnormality. No noncontrast CT evidence of mass, acute hemorrhage or subacute stroke. 2. Bilateral mastoid effusions. SL: EDER at 0154 Reported and signed by: Gilbert Sibley M.D. CC: Jay Hanna MD Technologist:Nirmala Roca, RT(R)(CT) CTDI: DLP: Trnscb Date/Time: 03/17/2020 (015) [email or web address] Orig Print D/T: S: 03/17/2020 (0157) PAGE 2 Signed ReportDRUGS OF ABUSE SCREEN [id number] 01:16:00 Test Item Value Reference Range Interpretation Comments URN COCAINE (test code NEGATIVE NEGATIVE = COCAURN) URN CANNABINOIDS (test NEGATIVE NEGATIVE code = CANNABURN) URN AMPHETAMINE (test NEGATIVE NEGATIVE code = AMPHETURN) URN BARBITURATE (test NEGATIVE NEGATIVE code = BARBITURN) URN BENZODIAZEPINE NEGATIVE NEGATIVE Cut-off v alue:200 (test code = BENZOURN) ng/mL URN OPIATES (test code NEGATIVE NEGATIVE Cut-o ff value:2000 = OPIATURN) ng/mL URN PHENCYCLIDINE (PCP) NEGATIVE NEGATIVE Cuto ffs:Barbiturates (test code = PHENCURN) 200 ng/mLBenzodiaze pines 200 ng/mLTHC Cannabinoids 50 ng/mLOpiates(Mo rphine) 2000 ng/mLAmphe tamine 1000 ng/mLCocai ne 300 ng/mLPCP phency clidine 25 ng/mL Unconf irmed screening resul ts shouldnot be us ed for non-medical pur poses. B-TYPE NATRIURETIC [id number] 00:50:00 Test Item Value Reference Range Interpretation Comments B-TYPE NATRIURETIC PEPTIDE (test 50.0 PG/ML 0-100 N code = BNP) BASIC METABOLIC [id number] 00:38:00 Test Item Value Reference Range Interpretation Comments SODIUM (test code = NA) 140 mEq/L 134-147 N POTASSIUM (test code = 4.5 mEq/L 3.4-5.0 N K) CHLORIDE (test code = 107 mEq/L 100-108 N CL) CARBON DIOXIDE (test 31 mEq/l 21-33 N code = CO2) ANION GAP (test code = 7 0-20 N GAP) GLUCOSE (test code = 98 mg/dL 70-110 N GLU) BLOOD UREA NITROGEN 18 mg/dL 7-18 N (test code = BUN) GLOMERULAR FILTRATION 76.9 95-105 L Units of measure = RATE (test code = GFR) ml/mi n/1.73 m2 CREATININE (test code = 0.8 mg/dL 0.6-1.3 N CREAT) CALCIUM (test code = 9.2 mg/dL 8.0-10.5 N CA) HEPATIC FUNCTION [id number] 00:38:00 Test Item Value Reference Range Interpretation Comments TOTAL PROTEIN (test code = PROT) 7.0 g/dL 6.4-8.2 N ALBUMIN (test code = ALB) 4.20 g/dL 3.4-5.0 N BILIRUBIN TOTAL (test code = 0.30 mg/dL 0.0-1.0 N BILT) BILIRUBIN DIRECT (test code = < 0.10 MG/DL 0.0-0.30 N BILD) BILIRUBIN INDIRECT (test code = 0.20 MG/DL BILIND) SGOT/AST (test code = AST) 24 IUnit/L 15-37 N SGPT/ALT (test code = ALT) 17 IUnit/L 30-65 L ALKALINE PHOSPHATASE TOTAL (test 99 IUnit/L 20-125 N code = ALKP) [id number] 00:38:00 Test Item Value Reference Range Interpretation Comments LIPASE (test code = LIP) 74 U/L 13-57 H [id number] 00:38:00 Test Item Value Reference Range Interpretation Comments MAGNESIUM (test code = MAG) 1.91 mg/dL 1.80-2.40 N TSH REFLEX TO [id number] 00:38:00 Test Item Value Reference Range Interpretation Comments TSH REFLEX TO FT4 (test code = 2.39 IU/mL 0.42-5.47 N TSHREFLEX) [id number] 00:38:00 Test Item Value Reference Range Interpretation Comments TROPONIN-I 0.007 ng/mL 0.000-0.045 N Negative: <= 0. 045 Positive: (test code = >= 0.046 Correl ation with TROPI) serial results, other cardiac markers andclin ical findings is necessary to determine the clinicalsignifi cance of this result. Results using different metho dologies should not be c omparedto one another as sarah titative results may tremayne y by method. CBC W/AUTO [id number] 00:28:00 Test Item Value Reference Range Interpretation Comments WHITE BLOOD CELL (test code = 7.4 x10 3/uL 4.5-11.0 N WBC) RED BLOOD CELL (test code = 4.80 x10 6/uL 3.54-5.02 N RBC) HEMOGLOBIN (test code = HGB) 15.1 g/dL 11.0-15.0 H HEMATOCRIT (test code = HCT) 46.5 % 33.0-45.0 H MEAN CELL VOLUME (test code = 96.9 fL 81.0-99.0 N MCV) MEAN CELL HGB (test code = MCH) 31.5 pg 27.0-33.0 N MEAN CELL HGB CONCETRATION 32.5 g/dL 33.0-37.0 L (test code = MCHC) RED CELL DISTRIBUTION WIDTH CV 11.9 % 11.5-14.5 N (test code = RDW) RED CELL DISTRIBUTION WIDTH SD 43.3 fL 37.0-54.0 N (test code = RDW-SD) PLATELET COUNT (test code = 312 x10 3/uL 150-400 N PLT) MEAN PLATELET VOLUME (test code 10.6 fL 7.0-9.0 H = MPV) NEUTROPHIL % (test code = NT%) 56.5 % 56.0-77.0 N IMMATURE GRANULOCYTE % (test 0.3 % 0.0-2.0 N code = IG%) LYMPHOCYTE % (test code = LY%) 30.5 % 14.0-32.0 N MONOCYTE % (test code = MO%) 8.5 % 4.8-9.0 N EOSINOPHIL % (test code = EO%) 3.4 % 0.3-3.7 N BASOPHIL % (test code = BA%) 0.8 % 0.0-2.0 N NUCLEATED RBC % (test code = 0.0 % 0-0 N NRBC%) NEUTROPHIL # (test code = NT#) 4.21 x10 3/uL 2.0-7.6 N IMMATURE GRANULOCYTE # (test 0.02 x10 3/uL 0.00-0.03 N code = IG#) LYMPHOCYTE # (test code = LY#) 2.27 x10 3/uL 1.0-3.8 N MONOCYTE # (test code = MO#) 0.63 x10 3/uL 0.1-0.8 N EOSINOPHIL # (test code = EO#) 0.25 x10 3/uL 0.0-0.2 H BASOPHIL # (test code = BA#) 0.06 x10 3/uL 0.0-0.2 N NUCLEATED RBC # (test code = 0.00 x10 3/uL 0.0-0.1 N NRBC#) MANUAL DIFF REQUIRED (test code NO = MDIFF) PROTHROMBIN [id number] 00:27:00 Test Item Value Reference Range Interpretation Comments PROTHROMBIN TIME 9.5 SECONDS 9.3-12.9 N PATIENT (test code = PTP) INTERNATIONAL NORMAL 0.9 0.8-1.2 N TARGET INR BY RATIO (test code = INDICATIO N Indication INR) INR1. Prophylax is of venous thrombos is 2.0 - 3.0 (orthoped ic surgery), Proph ylaxis of venous throm bosis (other than hig h-risk surgery), Treat ment of Deep Vein Thrombosis/Pulm onary Embolism, Preve ntion of systemic emb olism - Tissue heart va lves, Acute Myocardia l Infarction (to prevent systemic emboli sm), Valvular heart disease, Atrial Fibrillation, Bileaflet mecha nical valve in aortic position.2. Mec hanical prosthetic valv es (high risk), 2. 5 - 3.5 Presence of Lup us Anticoagulant o r Antiphospholipi d Antibodies, Pre vention of systemic emb olism - Acute Myocardia l Infarction (to prevent recurrent infar ct). THROMBOPLASTIN TIME [id number] 00:27:00 Test Item Value Reference Range Interpretation Comments THROMBOPLASTIN TIME 31.7 Seconds 25.0-39.5 N Therape utic Range: PARTIAL (test code = 50.4 - 88.3 Seconds PTT) Effective 06/02/2018 [id number] 00:27:00 Test Item Value Reference Range Interpretation Comments D-DIMER (test < 215 ng/mlFEU <=500 N THROMBOSIS A ND/OR PULMONARY code = EMBOLISM AND TH E CLINICAL DDIMER) CUT- OFF VALUE FOR EXCLUSION (500 ng/mL FEU) OF THESE CONDIT IONSIS VALIDATED BY E SHIPPING CHECKER OF THE METHOD. A NEGATIVE D-DI DARIUS RESULT WHEN COMBINED W ITH A CLINICALASSESSM ENT OF LOW PRETEST PROBABI LITY HAS BEEN SHOWN TO H AVEA HIGH NEGATIVE PREDIC TIVE VALUE OF DVT OR PE. D -DIMER VALUES >500 ng/ mL FEU ARE NOT DIAGNOSTIC FOR DVT, PEor DIC WITHOU T OTHER CONFIRMATORY TE STS AND APPROPRIATECLIN ICAL EUALUATIONS. - XR CHEST 1 [id number] 23:38:00 [facility] 1970 Sex: F FAX: Jay Roth MD [phone] [place]: [address]: PRE Name: GABE GRIER [facility] : 1970 Age/S: 49/F [address] [place] [address] Blvd Unit #: [id number] Loc: [place] [address] Phys: Jay Hanna MD Acct: [id number] Dis Date: Status: PRE ER PHONE #: [phone] Exam Date: 03/16/2020 2329 FAX #: [phone] Reason: Chest Pain EXAMS: CPT CODE: [id number] XR CHEST 1 V 94867 Chest, single view date03/16/2020. HISTORY: Chest pain. Comparison is made to a prior study dated 10/25/2011. The heart is normal in size. The cardiomediastinal shadow appears within normal limits. The lungs appear clear. The pulmonary vasculature is normal in caliber. No acute pleural space abnormalities are detected. 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 IMPRESSION: 1. No radiographic evidence of acute cardiopulmonary disease. SL: 131 at 4474 Reported and signed by: Demarco Hayes M.D. CC: Jay Hanna MD Technologist: RT Jerrod(Rayshawn) Trnscrd Date/Time/By: 03/16/2020 (7648) : By: DorisDMMOrig Print D/T: S: 03/16/2020 (3975) PAGE 1 Signed Report
[2021-11-07 10:55] LABS: Urine Blood Negative (Negative); Urine Glucose Negative (Negative); Urine Protein 1+ (Negative); Urine Specific Gravity >=1.030 (1.005-1.030); Urine pH 5.5 (5.0-7.0)
[2021-11-07 11:27] LABS: Absolute Lymphocytes (CBC) 1.6 K/uL (0.7-4.9); Hematocrit 43.8 % (36.0-45.0); Lymphocytes % 14.1 % (15.3-44.8); MCV 91.1 fL (80-100); MPV 8.3 fL (7.6-11.3); RBC Red Blood Cell Count 4.81 M/uL (3.86-4.86)
[2021-11-07 11:46] LABS: Albumin 3.9 g/dL (3.4-5.0); Bilirubin Total 0.9 mg/dL (0.2-1.0); Potassium 3.7 mmol/L (3.5-5.1); Protein, Total 7.7 g/dL (6.4-8.2)
[2021-11-07] MEDS ORDERED: ONDANSETRON 4 MG/2 ML VIAL ONE (11:46)
--- NOTE | 2021-11-07 12:35 | RAD REPORT ---
EXAM DESCRIPTION: CTAbdomen Pelvis W Contrast - 11/07/2021 12:10 pm CLINICAL HISTORY: Abdominal pain. llq abdominal pain, pelvic pain COMPARISON: No comparisonsNo comparisonsNo comparisonsNo comparisons TECHNIQUE: Biphasic CT imaging of the abdomen and pelvis was performed with 100 ml non-ionic IV cont rast. All CT scans are performed using dose optimization technique as appropriate and may include automated exposure control or mA/KV adjustment according to patient size. FINDINGS: The lung bases are clear.Moderate hiatal hernia. The liver, spleen, pancreas, adrenal glands and kidneys are within normal limits. No bowel obstruction, free air, free fluid or abscess. Moderate inflammation is seen in the left lowe r quadrant with wall thickening surrounding the sigmoid colon. Several diverticular present in the re gion. This is most compatible with moderate diverticulitis. No evidence of abscess. The appendix is n ormal. Small to moderate fat containing umbilical hernia. No evidence of significant lymphadenopathy. Fibroid uterus. No suspicious bony findings. IMPRESSION: Moderately severe left lower quadrant acute sigmoid diverticulitis without abscess.
--- NOTE | 2021-11-07 12:58 | RAD REPORT ---
EXAM DESCRIPTION: US - Transvaginal Study Probe - 11/07/2021 11:05 am CLINICAL HISTORY: Pelvic pain COMPARISON: none FINDINGS: The uterus measures 8 x 4 x 5 cm. A 4.2 centimeter fibroid. . The endometrial stripe measu res 5 millimeters. Right Essure in place Left Essure is present within the right aspect of the uterus extending towards the left fallopian tub e. The ovaries are normal in size and echotexture. The right and left adnexa unremarkable No significant free fluid is seen. IMPRESSION: Bilateral Essure. A large fibroid within the uterus distorts the endometrium. It is diff icult to determine if the Essures are in good position. 4.2 centimeter fibroid
--- NOTE | 2021-11-07 14:08 | EDPHYS ---
Physician Documentation [facility] Name: Caprice Doll Age: 51 yrs Sex: Female : 1970 Arrival Date: 11/07/2021 Time: 10:18 Bed 9 Private MD: ABELINO Physician Cachorro Adair HPI: 11/07 10:40 This 51 yrs old Female presents to ER via Ambulatory with complaints of LLQ Pain, jmm Pelvic Pain, Fever. 10:40 The patient presents with abdominal pain. Onset: The symptoms/episode began/occurred jmm gradually, 1 day(s) ago. The symptoms radiate to back. Associated signs and symptoms: Pertinent positives: fever. The symptoms are described as achy, sharp. Modifying factors: The symptoms are alleviated by nothing, the symptoms are aggravated by pressure. The patient has not experienced similar symptoms in the past. This is a 51-year-old female with no known chronic medical conditions presents emerged part with complaints of left lower quadrant abdominal and pelvic pain symptoms worsened last night with fever. Denies vomiting or diarrhea. Patient does have concern she may have a pelvic infection.. 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 - Social history:: Smoking status: Patient denies any tobacco usage or history of. ROS: 10:40 Constitutional: Negative for fever, chills, and weight loss, Cardiovascular: Negative jmm for chest pain, palpitations, and edema, Respiratory: Negative for shortness of breath, cough, wheezing, and pleuritic chest pain. 10:40 Abdomen/GI: Positive for abdominal pain. 10:40 All other systems are negative. Exam: 10:40 Constitutional: This is a well developed, well nourished patient who is awake, alert, jmm and in no acute distress. Head/Face: atraumatic. Eyes: EOMI, no conjunctival erythema appreciated ENT: Moist Mucus Membranes Neck: Trachea midline, Supple Chest/axilla: Normal chest wall appearance and motion. Cardiovascular: Regular rate and rhythm. 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 Vital Signs: 10:38 BP 145 / 95; Pulse 89; Resp 18; Temp 98.3; Pulse Ox 100% on R/A; iw 12:55 BP 102 / 62; Pulse 82; Resp 16; Pulse Ox 100% on R/A; Pain 3/10; bm7 MDM: 10:40 Patient medically screened. [facility] 14:07 Data reviewed: vital signs, nurses notes. Counseling: I had a detailed discussion with jammie the patient and/or guardian regarding: the historical points, exam findings, and any diagnostic results supporting the discharge/admit diagnosis, radiology results, the need for outpatient follow up, to return to the emergency department if symptoms worsen or persist or if there are any questions or concerns that arise at home. 11/07 10:41 Order name: CBC with Diff [facility] 11/07 10:41 Order name: CMP [facility] 11/07 10:41 Order name: Lipase [facility] 11/07 10:42 Order name: GC (GONORR/CHLAMYDIA) Probe [facility] 11/07 10:42 Order name: Urine Culture [facility] 11/07 10:43 Order name: Wet Prep [facility] 11/07 10:41 Order name: CT Abd/Pelvis - IV Contrast Only [facility] 11/07 10:43 Order name: US Pelvis Complete [facility] 11/07 10:55 Order name: Urine Dipstick-Ancillary; Complete Time: 10:55 [facility] 11/07 11:29 Order name: CBC with Automated Diff; Complete Time: 11:32 [facility] 11/07 11:47 Order name: Comprehensive Metabolic Panel; Complete Time: 11:48 [facility] 11/07 11:47 Order name: Lipase; Complete Time: 11:48 [facility] 11/07 12:35 Order name: CT; Complete Time: 12:40 EDMD 11/07 10:41 Order name: IV Saline Lock; Complete Time: 11:21 [facility] 11/07 10:41 Order name: Labs collected and sent; Complete Time: 11:21 [facility] 11/07 10:42 Order name: Urine Dipstick-Ancillary (obtain specimen); Complete Time: :53 [facility] 11/07 10:46 Order name: Pelvic Exam Setup; Complete Time: : [facility] 11/07 12:59 Order name: US; Complete Time: 13:01 EDMS Administered Medications: 11:38 Not Given (Patient Refused): Zofran (Ondansetron) 4 mg IVP once; over 2 minutes ss 14:08 Drug: LevaQUIN (levofloxacin) 750 mg Route: PO; iw 14:20 Follow up: Response: No adverse reaction iw 14:08 Drug: metroNIDAZOLE 500 mg Route: PO; iw 14:20 Follow up: Response: No adverse reaction iw Disposition Summary: 11/07/21 14:07 Discharge Ordered Location: Home [facility] Condition: Stable [facility] Diagnosis - Acute sigmoid diverticulitis [facility] Followup: [facility] - With: Private Physician - When: 2 - 3 days - Reason: Recheck today's complaints, Continuance of care, Re-evaluation by your physician Discharge Instructions: - Discharge Summary Sheet [facility] - Diverticulitis [facility] Forms: - Medication Reconciliation Form [facility] - Thank You Letter [facility] - Antibiotic Education [facility] - Prescription Opioid Use [facility] Prescriptions: - Flagyl 500 mg Oral Tablet - take 1 tablet by ORAL route every 6 hours for 10 days; 40 tablet; Refills: 0, [facility] Product Selection Permitted - levofloxacin 750 mg Oral Tablet - take 1 tablet by ORAL route once daily; 10 tablet; Refills: 0, Product [facility] Selection Permitted - Ultracet 37.5-325 mg Oral Tablet - take 1 tablet by ORAL route every 6 hours - for up to 5 days; do not exceed 8 jmm tablets per day.; 20 tablet; Refills: 0, Product Selection Permitted Signatures: Dispatcher [employer] EDMS Fredy Willis PA PA m Connie Mcfarlane RN RN iw Cynthia Honeycutt RN ss Corrections: (The following items were deleted from the chart) 11:39 10:43 GC (Gonorr/Clamydia) Probe+R.LAB.BRZ ordered. EDMS EDMS
--- NOTE | 2021-11-07 14:08 | ER ---
Nurse's Notes [facility] Name: Caprice Doll Age: 51 yrs Sex: Female : 1970 Arrival Date: 11/07/2021 Time: 10:18 Bed 9 Private MD: Diagnosis: Acute sigmoid diverticulitis Presentation: 11/07 10:38 Chief complaint: Patient states: LLQ pain and pelvic pain and fever , +nausea, no iw diarrhea or vomiting. Coronavirus screen: Client presents with at least one sign or symptom that may indicate coronavirus-19. Ebola Screen: Patient negative for fever greater than or equal to 101.5 degrees Fahrenheit, and additional compatible Ebola Virus Disease symptoms Patient denies exposure to infectious person. Patient denies travel to an Ebola-affected area in the 21 days before illness onset. No symptoms or risks identified at this time. Initial Sepsis Screen: Does the patient meet any 2 criteria? No. Patient's initial sepsis screen is negative. Does the patient have a suspected source of infection? No. Patient's initial sepsis screen is negative. Risk Assessment: Do you want to hurt yourself or someone else? Patient reports no desire to harm self or others. Onset of symptoms was November 06, 2021. 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 - Social history:: Smoking status: Patient denies any tobacco usage or history of. Screenin:51 Abuse screen: Denies threats or abuse. Denies injuries from another. Nutritional ss screening: No deficits noted. Tuberculosis screening: Never had TB. Fall Risk None identified. Assessment: 10:51 Reassessment: UA obtained. Pt to US at this time. ss Vital Signs: 10:38 BP 145 / 95; Pulse 89; Resp 18; Temp 98.3; Pulse Ox 100% on R/A; iw 12:55 BP 102 / 62; Pulse 82; Resp 16; Pulse Ox 100% on R/A; Pain 3/10; bm7 ED Course: 10:18 Patient arrived in ED. mr 10:24 Fredy Willis PA is PHCP. [facility] 10:24 Cachorro Adair MD is Attending Physician. [facility] 10:39 Triage completed. iw 10:41 Arm band placed on. iw 10:53 Sridevi Hermosillo, RN is Primary Nurse. bm7 10:55 Urine Culture Sent. kc6 11:27 Inserted saline lock: 22 gauge in left forearm, using aseptic technique. em1 14:18 Patient has correct armband on for positive identification. Call light in reach. iw 14:18 Assist provider with pelvic exam: Set up pelvic tray. Performed by Fredy RAZO iw Specimens sent to lab. Patient tolerated well. IV discontinued, intact, bleeding controlled, No redness/swelling at site. Pressure dressing applied. Administered Medications: 11:38 Not Given (Patient Refused): Zofran (Ondansetron) 4 mg IVP once; over 2 minutes 14:08 Drug: LevaQUIN (levofloxacin) 750 mg Route: PO; iw 14:20 Follow up: Response: No adverse reaction iw 14:08 Drug: metroNIDAZOLE 500 mg Route: PO; iw 14:20 Follow up: Response: No adverse reaction iw Medication: 10:51 VIS not applicable for this client. Outcome: 14:07 Discharge ordered by . [facility] 14:18 Discharged to home ambulatory. iw 14:18 Condition: good 14:18 Discharge instructions given to patient, Instructed on discharge instructions, follow up and referral plans. medication usage, Demonstrated understanding of instructions, follow-up care, medications, Prescriptions given X 2. 14:20 Patient left the ED. iw Signatures: Fredy Willis PA PA jmm Bennie Holly mr McfarlaneConnie, RN RN iw Reji Hinton em1 Cynthia Honeycutt RN RN Sridevi Hermosillo, DESMOND RN Yue Morocho [facility]
[2021-11-07] MEDS ORDERED: metroNIDAZOLE 500 MG TABLET ONE (14:18)
[2021-11-07] MEDS ORDERED: levoFLOXacin 750 MG TAB ONE (14:19)
[2021-11-08 20:58] VITALS: O2SAT 100
[2021-11-08 21:05] VITALS: BP 145/95; TEMP 98.3
== END 2021-11-07 14:20 | disposition home or self-care (01) ==
LOC: ER 10:15
DX: K57.32 Diverticulitis of large intestine without perforation or abscess without bleeding (principal); Z88.1 Allergy status to other antibiotic agents; Z88.5 Allergy status to narcotic agent
CPT/HCPCS: 87088; 85025; 87086; 36415; 87210; 81003; 83690; 80053; 87590; 87490; 74177; 76830; Q9967; J2405

== ENCOUNTER 2022-06-27 11:11 | Observation (INO) | payer OTHER ==
--- OUTSIDE RECORDS SUMMARY | 2022-06-27 11:17 | XMS REPORT | Continuity of Care Document ---
:1970 Author Organization [facility] t Address [address] [place] [address] [address] [place] [address] Care Team Providers Name Role Phone Asked, No Pcp Primary Care Physician Unavailable JO ANN CASTRO Attending Clinician Unavailable Jo Ann Castro MD Attending Clinician [phone] LISETTE DALY Attending Clinician Unavailable LISETTE DALY Attending Clinician Unavailable Doctor Unassigned, [place] Attending Clinician Unavailable Only, Pcp Test Attending Clinician Unavailable Andrea Black MD Attending Clinician Marco Causey MD Attending Clinician DEBRA HOBBS Attending Clinician Unavailable Raquel Tejeda Attending Clinician Debra Hobbs MD Attending Clinician Yue Kim MD Attending Clinician YUE KIM Attending Clinician Unavailable DEBRA HOBBS Admitting Clinician Unavailable Debar Hobbs MD Admitting Clinician Payers Payer Name Policy Type Policy Number Effective Date Expiration Date Ramya [employer] [id number] 2021 OUT OF NETWORK 00:00:00 Problems Condition [...] 2020-02 U nivers 1-26 ity of 00:00: [place] [facility] Obesity Obesity Disease Active 2020-02 Univers (BMI (BMI 1-26 ity of 30-39.9) 30-39.9) 00:00: [place] [facility] Nipple Nipple Disease Active Univers discharge discharge 6-14 ity of 00:00: [place] [facility] Lump or Lump or Disease Active Univers mass in mass in 6-14 ity of breast breast 00:00: [place] [facility] Vaginal Vaginal Disease Active Univers spotting spotting 6-14 ity of 00:00: [place] [facility] Vaginal Vaginal Disease Active Univers discharge discharge 6-14 ity of 00:00: [place] [facility] Essential Essential Disease Active Uni vers hypertensi hypertensi 5-19 it y of on on 00:00: [place] [facility] Bleeding Bleeding Disease Active Unive rs after after 5-19 ity of intercours intercours [place] Nipple Nipple Disease Active Univers discharge discharge 5-19 ity of in female [place] 00[place] Allergies, Adverse Reactions, Alerts Allergy Allergy Status Severity Reaction(s) Onset Inactive Treating Comm ents Source Name Type Date Date Clinician diazepam DA Active U [facility] 10-24 Clear 00:00: [place] 00 [facility] nickel DA Active [place] [facility] 10-24 Clear 00:00: [place] 00 [facility] diazepam DA Active U HYPERACTIVIT HC A Y,ITCHING,HI 10-24 Anna r VES 00:00: [place] 00 [facility] nickel DA Active [place] ITCHINESS, [facility] RASH, HIVES 10-24 Clear 00:00: [place] 00 [facility] Diazepam Propensi Active Unknown - Uni vers ty to See comments 08-12 ity of adverse 00:00: [place] reaction Medical s [place] DIAZEPAM DRUG Active Unknown-Cmnt Un filomena INGREDI 08-12 ity of 00:00: [place] [address] Medical Branch Social History Social Habit Start Date Stop Date Quantity Comments Source History SDOH University o f Alcohol Frequency [facility] edical Branch History SDCO University o f Alcohol Std Drinks [facility] Branch History [facility] University o f Alcohol Binge [place] [facility] Gender identity [facility] Sexual orientation [facility] Exposure to 2022-06-16 2022-06-26 Not sure University of SARS-CoV-2 (event) 00:00:00 14:45:00 [facility] Alcohol intake 2021-08-28 2021-08-28 Current drinker Unive rsity of 00:00:00 00:00:00 of alcohol [facility] (finding) Branch Alcohol Comment 2015-08-01 2015-08-01 Only drinks Universi ty of 00:00:00 00:00:00 about once a [facility] year. Branch Cigarettes smoked 2014-07-05 2014-07-05 Univers ity of current (pack per 00:00:00 00:00:00 [facility] ) - Reported Branch Cigarette 2014-07-05 2014-07-05 University of pack-years 00:00:00 00:00:00 [facility] Tobacco use and 2014-07-05 2014-07-05 Smokeless Universit y of exposure 00:00:00 00:00:00 tobacco non-user [facility] dical [place] History of tobacco 2014-07-05 Cigarette Smoker University of use 00:00:00 [facility] Sex Ass[birth year] At [birth year] [facility] 00:00[facility] 00:[facility]00 Hospital Smoking Status Start Date Stop Date Source Tobacco smoking [facility] consumption unknown Ex-smoker 2014-07-05 00:00:00 2014-07-05 University o f [place] 00:00:00 Medical Branch Medications Ordered Filled Start Stop Current Ordering Indication Dosage Frequency Signature Comments Components Source Medication Medication Date Date Medication? Clinician (SIG) Name Name lisinopriL Yes 10mg Take 10 mg U nivers 10 mg 2-25 by mouth ity of tablet 13:13: daily. [place] 43 Medical [place] aspirin 81 2020-02- No [id number] 81mg Take 1 Univers mg chewable -13 02-29 tablet by it y of tablet 00:00: 05:59 mouth [place] 00 :00 daily for Medical 30 days. Branch lisinopriL 2020-02- No [id number] 10mg Take 1 Univers 10 mg - 12-29 tablet by ity of tablet 00:00: 05:59 mouth [place] 00 :00 daily for Medical 30 days. Branch aspirin 81 2020-02- No [id number] 81mg Take 1 Univers mg chewable -13 02-29 tablet by it y of tablet 00:00: 05:59 mouth [place] 00 :00 daily for Medical 30 days. [place] lisinopriL 2020-02- No [id number] 10mg Take 1 Univers 10 mg -13 02-29 tablet by ity of tablet 00:00: 05:59 mouth [place] 00 :00 daily for Medical 30 days. Branch aspirin 81 2020-02- No [id number] 81mg Take 1 Univers mg chewable -13 02-29 tablet by it y of tablet 00:00: 05:59 mouth [place] 00 :00 daily for Medical 30 days. Branch lisinopriL 2020-02- No [id number] 10mg Take 1 Univers 10 mg 03-16-29 tablet by ity of tablet 00:00: 05:59 mouth [place] 00 :00 daily for Medical 30 days. [place] aspirin 2020-02 Yes 81mg 81 mg, Univers chewable 03-15 Oral, ity of tablet 81 15:00: DAILY, [place] mg 00 First dose Medical on Sat [place] 01/13/21 at 0900, Until Discontinu ed, Routine enoxaparin 2020-02 Yes 40mg 40 mg, Unive rs (LOVENOX) 03-15 Subcutaneo ity of injection 15:00: [place], DAILY, [place] 40 mg 00 First dose Medical on Sat [place] 01/13/21 at 0900, Until Discontinu ed, Routine lisinopriL 2020-02 Yes 10mg 10 mg, Unive rs (PRINIVIL,Z 03-15 Oral, ity of ESTRIL) 15:00: DAILY, [place] tablet 10 00 First dose Medi cha mg on Fri01/13/21 at 0900, Until Discontinu ed, Routine butalbital- 2020-02 Yes 1{tbl} 1 tablet, Univers acetaminoph 03-15 Oral, ity of en-caff 09:16: Q6RN, [place] (ESGIC) 24 Starting Medical 50-325-40 on Fri Branch mg tablet 1 01/13/21 tablet at 0316, [...] 03-15 IV Push, ity of (PF)) 04:38: [facility] [place] injection 4 38 Starting Medi cha mg on Fri01/12/21 at 2238, Until Discontinu ed, Routine, Nausea and Vomiting (N/V) morpHINE 2020-02- No 2mg 2 mg, Slow Un filomena injection 2 03-15 1128 IV Push, ity of mg 04:38: 04:37 [facility], [place] 30 :30 Starting Medical on Fri01/12/21 at 2238, Until 01/13/21 at 2237, Routine, Pain (scale 7-10) traMADoL 2020-02- No 50mg 50 mg, Univer s (ULTRAM) 03-15 1129 Oral, ity of tablet 50 04:38: 04:37 Q8HPRN, [place] mg 27 :27 Starting Medical on Fri01/12/21 at 2238, Until 01/14/21 at 2237, Routine, Pain (scale 4-6) acetaminoph 2020-02 Yes 650mg 650 mg, Un filomena en 03-15 Oral, ity of (TYLENOL) 04:38: [facility], [place] tablet 650 23 Starting Medic al mg on Fri Branch 01/12/21 at 2238, Until Discontinu ed, Routine, Pain (scale 1-3) ketorolac 2020-02- No 30mg 30 mg, Unive rs (TORADOL) 03-15 Slow IV ity of injection 03:15: 02:12 Push, [place] 30 mg 00 :00 ONCE, 1 Medical dose, On Branch 01/12/21 at 2115, MAREK
Fa culty member approving Restricted medication : EMERGENCY ROOM, nitroglycer 2020-02- No .4mg 0.4 mg, Un filomena in 03-15 Sublingual ity of (NITROSTAT) 02:30: 01:57 , ONCE, 1 [place] sublingual 00 :00 dose, On Medic al tablet 0.4 Fri Branch mg 01/12/21 at 2030, MAREK aspirin 2020-02- No 325mg 325 mg, Unive rs tablet 325 03-15 Oral, ity of mg 01:00: 00:06 ONCE, 1 [place] 00 :00 dose, On Medical Fri Branch 01/12/21 at 1900, MAREK iopamidol 2020-02- No [id number] 120mL 120 mL, Univers (ISOVUE 03-15 Intravenou ity o f 370-500 mL) 00:32: 00:33 s, ONCE, 1 [place] injection 00 :00 dose, On Medica l 120 mL Fri Branch 01/12/21 at 1845, Routine nitroglycer 2020-[id number] 1 Univers in 0.4 mg 1-27 tablet ity of sublingual 00:00: under the [place] tablet 00 tongue Medical every 5 Branch (five) minutes as needed for Chest pain. nitroglycer 2020-[id number] 1 Univers in 0.4 mg 1-27 tablet ity of sublingual 00:00: under the [place] tablet 00 tongue Medical every 5 Branch (five) minutes as needed for Chest pain. nitroglycer 2020-[id number] 1 Univers in 0.4 mg 1-27 tablet ity of sublingual 00:00: under the [place] tablet 00 tongue Medical every 5 Branch (five) minutes as needed for Chest pain. nitroglycer 2020-[id number] 1 Univers in 0.4 mg 1-27 tablet ity of sublingual 00:00: under the [place] tablet 00 tongue Medical every 5 Branch (five) minutes as needed for Chest pain. nitroglycer 2020-[id number] 1 Univers in 0.4 mg 1-27 tablet ity of sublingual 00:00: under the [place] tablet 00 tongue Medical every 5 Branch (five) minutes as needed for Chest pain. atorvastati 2020-02- No [id number] 40mg Take 1 Univers n (LIPITOR) 1-12 02- tablet by it y of 40 mg 00:00: 05:59 mouth at [place] tablet 00 :00 bedtime Medical for 30 Branch days. atorvastati 2020-02- No [id number] 40mg Take 1 Univers n (LIPITOR) 03-15- tablet by it y of 40 mg 00:00: 05:59 mouth at [place] tablet 00 :00 bedtime Medical for 30 Branch days. lisinopril Yes TAKE 1 Unive rs (PRINIVIL,Z 07-26 TABLET BY ity of ESTRIL) 10 00:00: MOUTH [place] mg tablet 00 EVERY DAY Medic al Branch lisinopril 2020- No TAKE 1 Univ ers (PRINIVIL,Z 6-01-13 TABLET BY it y of ESTRIL) 10 00:00: 00:00 MOUTH [place] mg tablet 00 :00 EVERY DAY Medic al Branch Nitrofurant Yes 100mg Take 1 Cap Univers oin&Nit. 6-05 by mouth ity of Macrocryst 00:00: every 12 [place] as (MACROBID) 00 (twelve) Medic al 100 mg hours. Branch capsule Nitrofurant 2020- No 100mg Take 1 Cap Univers oin&Nit. 6-05 - by mouth ity of Macrocryst 00:00: 00:00 every 12 [place] (MACROBID) 00 :00 (twelve) Medic al 100 mg hours. Branch capsule metroNIDAZO Yes 500mg Take 1 Tab Univers LE (FLAGYL) 5-28 by mouth 2 it y of 500 mg 00:00: (two) [place] tablet 00 times Medical daily. Branch metroNIDAZO 2020- 500mg Take 1 Tab Univers LE (FLAGYL) 07-14 by mouth 2 i ty of 500 mg 00:00: 00:00 (two) [place] tablet 00 :00 times Medical daily. Branch Vital Signs Vital Name Observation Time Observation Value Comments Source Systolic blood 2022-06-26 19:52:00 141 mm[Hg] Univer sity of pressure [facility] Diastolic blood 2022-06-26 19:52:00 90 mm[Hg] Unive rsity of pressure [facility] Heart rate 2022-06-26 19:52:00 102 /min Universi ty of [facility] Body temperature 2022-06-26 19:52:00 36.61 [place] Univ ersity [facility] Respiratory rate 2022-06-26 19:52:00 20 /min Univ ersity of [facility] Body weight 2022-06-26 19:52:00 57.607 kg Universi ty of [facility] BMI 2022-06-26 19:52:00 23.61 kg/m2 Universi ty [facility] Oxygen saturation in 2022-06-26 19:52:00 96 /min University of Arterial blood by [place] [facility] Pulse oximetry Branch Systolic blood 2021-01-13 17:12:00 138 mm[Hg] Univer sity of pressure [facility] Diastolic blood 2021-01-13 17:12:00 88 mm[Hg] Unive rsity of pressure [facility] Heart rate 2021-01-13 17:12:00 77 /min Universi ty of [facility] Body temperature 2021-01-13 17:12:00 36.67 [place] Univ ersity [facility] Respiratory rate 2021-01-13 17:12:00 16 /min Univ ersity [facility] Oxygen saturation in 2021-01-13 17:12:00 98 /min University of Arterial blood by [place] [facility] Pulse oximetry Branch Body height 2021-01-13 04:34:00 142.2 cm Universi ty of [place] [facility] [place] Body weight 2021-01-13 04:34:00 68.04 kg Universi ty of [place] [facility] [place] BMI 2021-01-13 04:34:00 33.63 kg/m2 Universi ty [facility] Systolic blood 2020-03-17 02:56:24 141 mm[Hg] Univer sity of pressure [place] [facility] Diastolic blood 2020-03-17 02:56:24 86 mm[Hg] Unive rsity of pressure [place] [facility] Heart rate 2020-03-17 02:56:24 97 /min Universi ty of [place] [facility] Body temperature 2020-03-17 02:56:24 36.78 [place] Univ ersity of [place] [facility] Respiratory rate 2020-03-17 02:56:24 18 /min Univ ersity of [place] [facility] Oxygen saturation in 2020-03-17 02:56:24 99 /min University of Arterial blood by [facility] Pulse oximetry Branch Body height 2020-03-17 00:51:00 154.9 cm Universi ty of [place] [facility] Body weight 2020-03-17 00:51:00 61.236 kg Universi ty of [place] [facility] BMI 2020-03-17 00:51:00 25.51 kg/m2 Universi ty of [place] [facility] Systolic blood 2020-03-17 02:56:24 141 mm[Hg] Univer sity of pressure [place] [facility] Diastolic blood 2020-03-17 02:56:24 86 mm[Hg] Unive rsity of pressure [place] [facility] Heart rate 2020-03-17 02:56:24 97 /min Universi ty of [place] [facility] Body temperature 2020-03-17 02:56:24 36.78 [place] Univ ersity of [place] [facility] Respiratory rate 2020-03-17 02:56:24 18 /min Univ ersity of [place] [facility] Oxygen saturation in 2020-03-17 02:56:24 99 /min University of Arterial blood by [facility] Pulse oximetry Branch Body height 2020-03-17 00:51:00 154.9 cm Universi ty of [place] [facility] Body weight 2020-03-17 00:51:00 61.236 kg Universi ty of [place] [facility] BMI 2020-03-17 00:51:00 25.51 kg/m2 Universi ty of [place] [facility] Procedures Procedure Date / Time Performing Clinician Source Performed CONSENT/REFUSAL FOR 2022-06-26 19:34:20 Doctor Unassigned, No Un [facility] DIAGNOSIS AND TREATMENT Name Medical Branch ASSIGNMENT OF BENEFITS 2021-04-13 18:53:47 Doctor Unassigned, No [facility] Name Medical Branch TROPONIN I 2021-01-13 11:55:00 [facility]OLIC PANEL 2021-01-13 11:55:00 [facility] (NA, K, CL, CO2, Medical Branch GLUCOSE, BUN, CREATININE, CA) LIPID PANEL 2021-01-13 11:55[id number]TOTAL Medical Branch CHOLESTEROL, TRIGLYCERIDES, HDL) CBC WITH DIFF 2021-01-13 11:55:00 [facility] GLYCOSYLATED HEMOGLOBIN 2021-01-13 11:55:00 Broderick Russell [facility] (A1C) [facility] CT HEAD WO CONTRAST 2021-01-13 09:43:[facility] 2021-01-13 06:10:00 [facility] COVID-19 (ID NOW RAPID 2021-01-13 02:17:[facility] Medical Branch URINALYSIS 2021-01-13 01:54:[facility] CHEST 2021-01-13 00:38:00 [facility] I 2021-01-13 00:23:00 [facility] [place] [facility] HE[facility] FUNCTION PANEL 2021-01-13 00:23:00 [facility] ([id number] (ALB,T.PRO,BILI [facility] Branch T,BU/BC,ALT,AST,ALK PHOS) BASIC METABOLIC PANEL 2021-01-13 00:23:00 [facility] (NA, K, CL, CO2, Medical Branch GLUCOSE, BUN, CREATININE, CA) CBC WITH DIFF 2021-01-13 00:23:00 [facility] [place] [facility] PROT[facility] TIME / INR 2021-01-13 00:23:00 [facility] D-DIMER 2021-01-13 00:23:00 Raquel George [facility] N-TERMINAL PRO-BNP 2021-01-13 00:23:00 Raquel George [facility] XR CHEST 1 VW 2021-01-13 00:08:17 Raquel George [facility] CONSENT/REFUSAL FOR 2021-01-12 23:44:55 Doctor Unassigned, No Un [facility] DIAGNOSIS AND TREATMENT Name [facility] NOTICE OF PRIVACY 2021-01-12 23:44:42 Doctor Unassigned, No Univ [facility] PRACTICES Name [facility] COMP. METABOLIC PANEL 2020-03-17 03:10:00 Ulysses Walter [facility] ([id number]) Medical [place] XR CHEST 1 VW 2020-03-17 02:08:05 Phill [facility] LIPASE 2020-03-17 01:47:00 Phill [facility] TROPONIN I 2020-03-17 01:47:00 Phill [facility] CBC WITH DIFF 2020-03-17 01:47:00 Phill [facility] PROTHROMBIN TIME / INR 2020-03-17 01:47:00 Ulysses Walter [facility] ACTIVATED PARTIAL 2020-03-17 01:47:00 Phill [facility] THRMPLAS [facility] N-TERMINAL PRO-BNP 2020-03-17 01:47:00 Yue Kim [facility] Plan of Care Planned Activity Planned Date Details Comments Source Future Scheduled 2022-05-23 INFLUENZA VACCINE Method t Hospital Test 23:34:54 [code = INFLUENZA VACCINE] Future Scheduled 2022-05-23 COVID-19 VACCINE (#1) [facility] Test 23:34:54 [code = COVID-19 VACCINE (#1)] Future Scheduled 2022-05-23 [facility] for [facility] Test 23:34:54 malignant neoplasm of cervix (procedure) [code = 645517265] Future Scheduled 2022-05-23 BREAST CANCER [facility] Test 23:34:54 SCREENING [code = BREAST CANCER SCREENING] Future Scheduled 2022-05-23 COLONOSCOPY SCREENING [facility] [place] [facility] Test 23:34:54 [code = COLONOSCOPY SCREENING] Future Scheduled 2021-10-17 HEPATITIS B VACCINES Met [facility] Test 13:33:52 (1 of 3 - 3-dose series) [code = HEPATITIS B VACCINES (1 of 3 - 3-dose series)] Future Scheduled 2021-10-17 COVID-19 VACCINE (#1) [facility] [place] [facility] Test 13:33:52 [code = COVID-19 VACCINE (#1)] Future Scheduled 2021-10-17 Screening for [facility] Test 13:33:52 malignant neoplasm of cervix (procedure) [code = 920942281] Future Scheduled 2021-10-17 BREAST CANCER [facility] Test 13:33:52 SCREENING [code = BREAST CANCER SCREENING] Future Scheduled 2021-10-17 COLONOSCOPY SCREENING [facility] [place] [facility] Test 13:33:52 [code = COLONOSCOPY SCREENING] Future Scheduled 2021-10-17 INFLUENZA VACCINE [facility] Test 13:33:52 [code = INFLUENZA VACCINE] Encounters Start End Encounter Admission Attending Care Care Encounter Source Date/Time Date/Time Type Type Clinicians Facility Department ID 2022-06-26 Emergency [facility] [id number] Univers 14:27:39 [facility] 2020-03-16 Inpatient HCACL GUZMAN [id number] [facility] 22:55:00 98 [facility] 2022-06-26 2022-06-26 Emergency X AUFDERHEIDE [facility] ERT [id number] Univers 14:52:00 15:59:00 , JO ANN [facility] 2022-06-26 2022-06-26 Emergency Aufderheide TRAUMA [id number] Univers 14:52:00 15:59:00 , Jo Ann CENTER [id number] it y of [place]2.686 [place] [id number] [address] 2021-04-13 2021-04-13 Outpatient LISETTE RAMIREZ [facility] [id number] Univers 13:00:00 14:01:29 LISETTE DALY [facility] 2021-04-13 2021-04-13 Orders Doctor ARORA [id number] Univers 00:00:00 00:00:00 Only Unassigned, NORMA [id number] ity of [place] [facility] 4.2.7.2.686 [place] [id number] [facility] 009 Branch 2021-02-07 2021-02-07 Laboratory Only, Pcp Test [facility] 1.2.840. 114 [id number] Univers 10:30:00 10:45:00 Only WayneAndrea PRIMARY [id number] ity of C[place] 4[place]2.[place].2.686 [place] [facility] [id number] Ca dical 366 Branch 2021-01-14 2021-01-14 Telephone ULYSSES Causey [id number] Univers 00:00:00 00:00:00 Qialucinda GREEN 350.1.13.10 i ty of HOSPITAL 4.2.7.2.686 [place] [id number] [facility] 008 Branch 2021-01-12 2021-01-13 Outpatient X ANJEL SPARROW [facility] [id number] Univers 17:50:00 14:02:00 DEBRA ity of [facility] 2021-01-12 2021-01-13 Emergency Raquel George [facility] 1.2.840 .114 [id number] Univers 17:50:00 14:02:00 Debra Hobbs [id number] ity of [place]2.[place] [id number] [facility] 081 Branch 2020-03-16 2020-03-16 Emergency [facility] [id number] 19:02:00 22:42:00 Yue Health [id number] Clear 4.2.7.2.686 [place] [id number] [facility] 014 ([facility]) 2020-03-16 2020-03-16 Emergency [facility] [id number] Univers 19:02:00 22:42:00 Yue Health 350.1.13.10 it y of [place]2.686 [place] [id number] [facility] 014 Branch ([facility]) 2020-03-16 2020-03-16 Emergency X GONZALO [facility] ERT [id number] Univers 19:02:00 19:02:00 YUE ellis of [facility] Results Test Description Test Time Test Comments Results Result Comments Source GLYCOSYLATED HEMOGLOBIN (A1C) 2021-01-13 15:04:45 Test Item Value Reference Range Interpretation Comme nts HGB A1C (test code = 4548-4) 5.1 % 4.0-5.7 ANGLE (test code = ANGLE) Reference RangesNormal: <5.7%Prediabetes: 5.7 - 6.4%Diabetes: > 6.5% Lab Interpretation (test code = Normal 63654-3) [facility] [id number] 13:58:40 Test Item Value Reference Interpretation Comments Range TROPONIN I (test 0.001 ng/mL See_Comment [Automated code = 9245829973) message] The system which generated this result [...] biotin. Lab Interpretation Normal (test code = 63984-3) [facility] ([id number])(TOTAL CHOLESTEROL, TRIGLYCERIDES, HDL)2021-01-13 13:48:00 Test Item Value Reference Range Interpretation Comments CHOL (test code = 207 mg/dL 120-200 H [id number]) HDL (test code = 35 mg/dL >50 L 2032893038) HDLC RATIO (test code = See_Comment H [Au tomated message] [id number]) The system [employer] generated this result transmit krystin reference range : <=4.5. The refe rence range was not u sed to interpret th is result as normal/abnormal . TRIG (test code = 229 mg/dL 30-170 H 0064186373) LDL CHOL (test code = 126 mg/dL See_Comment [Auto mated message] 44269-2) The system [employer] generated this result transmit krystin reference range : <=160. The refe rence range was not u sed to interpret th is result as normal/abnormal . VLDL (test code = 46 mg/dL 5-60 7594937789) Lab Interpretation (test Abnormal code = 08724-6) [facility] Metabolic Panel (NA, K, CL, CO2, GLUCOSE, BUN, CREATININE, CA)2021-01-13 13:47:39 Test Item Value Reference Range Interpretation Comments NA (test code = 137 mmol/L 135-145 2222169085) K (test code = 4.2 mmol/L 3.5-5.0 4985536639) CL (test code = 105 mmol/L 98-108 8412058535) CO2 TOTAL (test code 26 mmol/L 23-31 = 8138671503) AGAP (test code = 2-16 2649027566) BUN (test code = 18 mg/dL 7-23 6179413543) GLUCOSE (test code = 86 mg/dL 70-110 6396894385) CREATININE (test code 0.58 mg/dL 0.50-1.04 = 8606056979) CALCIUM (test code = 9.5 mg/dL 8.6-10.6 4502059511) eGFR (test code = mL/min/1.73m2 1834301226) ANGLE (test code = ANGLE) Association of [...] or urine or abnormalities in imaging tests). [facility] with [id number] 13:04:15 Test Item Value Reference Range Interpretation Comments WBC (test code = See_Comment [Automated 5490-2) message] The sy stem which generated this result transmitted reference range : 4.30 - 11.10 10*3/?L. The reference range was not used to interpret this result as normal/abnormal . RBC (test code = See_Comment [Automated 949-8) message] The sy stem which generated this [...] RDW-SD (test code = 39.8 fL 39.0-49.9 35489-8) RDW-CV (test code = 11.9 % 12.0-15.5 L 788-0) PLT (test code = See_Comment [Automated 147-3) message] The sy stem which generated this result transmitted reference range : 166 - 358 10*3/ ?L. The reference r marian was not used to interpret this result as normal/abnormal . MPV (test code = 10.5 fL 9.5-12.9 56799-0) NRBC/100 WBC (test See_Comment [Automat ed code = 9662496282) message] The system which generated this result transmitted reference range : 0.0 - 10.0 /100 WBCs. The refer ence range was not u sed to interpret th is result as normal/abnormal . NRBC x10^3 (test code <0.01 See_Comment [Auto mated = 8954744183) message] The s ystem which generated this result transmitted reference range : 10*3/?L. The reference range was not used to interpret this result as normal/abnormal . GRAN MAT (NEUT) % 52.5 % (test code = 770-8) IMM GRAN % (test code 0.40 % = 9802783000) LYMPH % (test code = 32.1 % 736-9) MONO % (test code = 9.8 % 5905-5) EOS % (test code = 4.5 % 713-8) BASO % (test code = 0.7 % 706-2) GRAN MAT x10^3(ANC) 2.89 10*3/uL 1.88-7.09 (test code = 3510796155) IMM GRAN x10^3 (test <0.03 0.00-0.06 code = 9880460709) LYMPH x10^3 (test code 1.77 10*3/uL 1.32-3.29 = 731-0) MONO x10^3 (test code 0.54 10*3/uL 0.33-0.92 = 742-7) EOS x10^3 (test code = 0.25 10*3/uL 0.03-0.39 711-2) BASO x10^3 (test code 0.04 10*3/uL 0.01-0.07 = 704-7) Lab Interpretation Abnormal (test code = 49341-7) [facility] ALBERTO [id number] 07:16:35 Test Item Value Reference Interpretation Comments Range TROPONIN I (test 0.005 ng/mL See_Comment [Automated code = 9506042008) message] The system which generated this result [...] biotin. Lab Interpretation Normal (test code = 89591-0) [facility]lineHEPATIC FUNCTION PANEL (39339) (ALB,T.PRO,BILI T,BU/BC,ALT,AST,ALK PHOS)2021-01-13 01:06:59 Test Item Value Reference Range Interpretation Comments TOTAL BILI (test code = 5154872657) 0.4 mg/dL 0.1-1.1 BILI UNCON (test code = 5080198856) 0.3 mg/dL 0.1-1.1 BILI CONJ (test code = 7965884153) 0.0 mg/dL 0.0-0.3 T PROTEIN (test code = 1995102553) 7.0 g/dL 6.3-8.2 ALBUMIN (test code = 4166996116) 4.3 g/dL 3.5-5.0 ALK PHOS (test code = 7804428216) 64 U/L 34-122 ALTv (test code = 1742-6) 18 U/L 5-35 AST(SGOT) (test code = 0898295623) 20 U/L 13-40 Lab Interpretation (test code = Normal 92844-6) [facility]lineTROPONIN [id number] 00:58:41 Test Item Value Reference Interpretation Comments Range TROPONIN I (test 0.003 ng/mL See_Comment [Automated code = 6242999280) message] The system which generated this result [...] biotin. Lab Interpretation Normal (test code = 68592-7) [facility]lineN-TERMINAL [id number] 00:55:40 Test Item Value Reference Range Interpretation Comments NT-proBNP (test code 285 pg/mL See_Comment H [Autom ated = 5950244081) message] The system which generated this result transmitted reference range : <=125. The reference range was not used to interpret this result as normal/abnormal . ANGLE (test code = ANGLE) Biotin has been reported to cause a negative bias, interpret results relative to patient's use of biotin. Lab Interpretation Abnormal (test code = 34545-9) [facility]lineD-[id number] 00:49:58 Test Item Value Reference Interpretation Comments Range D-DIMER (test code = See_Comment [Autom ated 7339449039) message] The system which generated this result [...] diagnosis. Lab Interpretation Normal (test code = 29288-7) [facility] METABOLIC PANEL (NA, K, CL, CO2, GLUCOSE, BUN, CREATININE, CA)2021-01-13 00:47:18 Test Item Value Reference Range Interpretation Comments NA (test code = 140 mmol/L 135-145 8200704989) K (test code = 4.3 mmol/L 3.5-5.0 6987261752) CL (test code = 106 mmol/L 98-108 7144510177) CO2 TOTAL (test code 29 mmol/L 23-31 = 7663010640) AGAP (test code = 2-16 6765788755) BUN (test code = 17 mg/dL 7-23 3175485315) GLUCOSE (test code = 96 mg/dL 70-110 8673896424) CREATININE (test code 0.75 mg/dL 0.50-1.04 = 0230311631) CALCIUM (test code = 10.3 mg/dL 8.6-10.6 9441806663) eGFR (test code = mL/min/1.73m2 2679600592) ANGLE (test code = ANGLE) Association of [...] or urine or abnormalities in imaging tests). [facility] ShorelinePROTHROMBIN TIME / [id number] 00:45:39 Test Item Value Reference Range Interpretation [...] tions. Lab Interpretation (test Abnormal code = 25140-2) [facility] WITH [id number] 00:35:19 Test Item Value Reference Range Interpretation Comments WBC (test code = See_Comment [Automated 9090-2) message] The sy stem which generated this result transmitted reference range : 4.30 - 11.10 10*3/?L. The reference range was not used to interpret this result as normal/abnormal . RBC (test code = See_Comment [Automated 889-8) message] The sy stem which generated this [...] RDW-SD (test code = 40.6 fL 39.0-49.9 07964-5) RDW-CV (test code = 11.9 % 12.0-15.5 L 788-0) PLT (test code = See_Comment [Automated 777-3) message] The sy stem which generated this result transmitted reference range : 166 - 358 10*3/ ?L. The reference r marian was not used to interpret this result as normal/abnormal . MPV (test code = 10.0 fL 9.5-12.9 83877-3) NRBC/100 WBC (test See_Comment [Automat ed code = 3155060385) message] The system which generated this result transmitted reference range : 0.0 - 10.0 /100 WBCs. The refer ence range was not u sed to interpret th is result as normal/abnormal . NRBC x10^3 (test code <0.01 See_Comment [Auto mated = 1714900554) message] The s ystem which generated this result transmitted reference range : 10*3/?L. The reference range was not used to interpret this result as normal/abnormal . GRAN MAT (NEUT) % 58.2 % (test code = 770-8) IMM GRAN % (test code 0.30 % = 6497975961) LYMPH % (test code = 30.3 % 736-9) MONO % (test code = 6.8 % 5905-5) EOS % (test code = 3.8 % 713-8) BASO % (test code = 0.6 % 706-2) GRAN MAT x10^3(ANC) 3.65 10*3/uL 1.88-7.09 (test code = 7668392955) IMM GRAN x10^3 (test <0.03 0.00-0.06 code = 9899379956) LYMPH x10^3 (test code 1.90 10*3/uL 1.32-3.29 = 731-0) MONO x10^3 (test code 0.43 10*3/uL 0.33-0.92 = 742-7) EOS x10^3 (test code = 0.24 10*3/uL 0.03-0.39 711-2) BASO x10^3 (test code 0.04 10*3/uL 0.01-0.07 = 704-7) Lab Interpretation Abnormal (test code = 62911-4) [facility] EXTRACRANIAL [id number] 15:52:00 [facility] BENNETTName: GABE GRIER : 1970 Sex: F Name: GABE GRIER [facility] Hardy : 1970 Age/S: 49 / F [address] [place] [address] Blvd Unit #: [id number] Loc: [place] [address] Phys: Edgardo Carrero DENTAL OFFICE COORDINATOR Acct: [id number] Dis Date: Status: ADM INPHONE #: [phone] Exam Date: 03/17/2020 1538 FAX #: [phone] Reason: dizziness daily EXAMS:CPT CODE: [id number] [facility] EXTRACRANIAL NARCISO [address]8310 Clinical Indication: Dizziness; Comparison: None TECHNIQUE: Connell-scale, color Doppler and spectral Doppler of the carotid arteries was performed. Any reported ICA stenoses indirectly reference the distal internal carotid diameter as the denominator for the stenosis measurement, utilizing consensus panel criteria. FINDINGS: RIGHT: Mild plaque formation. ICA PSV 70 cm/sec CCA PSV 93 cm/sec ICA/CCA ratio 0.7 Vertebral flow is antegrade. External carotid artery is patent. LEFT: Mild plaque formation. ICA PSV 111 cm/sec CCA PSV 81 cm/sec ICA/CCA ratio 1.4Vertebral flow is antegrade. External carotid artery is patent. IMPRESSION: RIGHT: ICA stenosis <50 % by velocity criteria. LEFT: ICA stenosis <50 % by velocity criteria. Consensus panel DopplerUS criteria for diagnosis of ICA stenosis: Stenosis (%) ICA PSV (cm/sec) ICA/CCA ratio ------ <50 <125 <2.0 50-69 125-230 2.0-4.0 >70 but less than >230 >4.0 near occlusion Near occlusion High, low, or Variable undetectable PAGE 1 Signed Report (CONTINUED) Name: GABE GRIER [facility] : 1970 Age/S: 49 / F [address] [place] [address] Unit #: [id number] Loc: [place] [address] Phys: Edgardo Carrero NP Acct: [id number] Dis Date: Status: ADM IN PHONE #: [phone] Exam Date: 03/17/2020 1538 FAX #: [phone] Reason: dizziness daily EXAMS: CPT CODE: [id number] [facility] EXTRACRANIAL NARCISO 16143 (Continued) SL: [id number] at 1552 Reported and signed by: Britt Leon M.D. CC: Edgardo Carrero NP; Elmer Manuel MD Technologist: Abby Barrientos RDMS(AB) Trnscb Date/Time: 03/17/2020 (1552) [email or web address] Orig Print D/T: S: 03/17/2020 (1555) Probe: PAGE 2 Signed [id number] 11:50:00 Test Item Value Reference Range Interpretation [...] titative results may tremayne y by method. [id number] 04:44:00 Test Item Value Reference Range Interpretation [...] tremayne y by method. COMP. METABOLIC PANEL (67002)2020-03-17 03:39:00 Test Item Value Reference Range Interpretation Comments NA (test code = 139 mmol/L 135-145 1838563538) K (test code = 4.4 mmol/L 3.5-5 6479539345) CL (test code = 100 mmol/L 98-108 2575346851) CO2 TOTAL (test code = 32 mmol/L 23-31 H 9748431473) AGAP (test code = 2-16 7843393879) BUN (test code = 22 mg/dL 7-23 1690844927) GLUCOSE (test code = 115 mg/dL 70-110 H 0893313628) CREATININE (test code = 0.62 mg/dL 0.5-1.04 6588036360) TOTAL BILI (test code = 0.1 mg/dL 0.1-1.0 2606157305) CALCIUM (test code = 9.7 mg/dL 8.6-10.6 4754820824) T PROTEIN (test code = 6.4 g/dL 6.3-8.2 6729452529) ALBUMIN (test code = 4.1 g/dL 3.5-5 6929642400) ALK PHOS (test code = 92 U/L 34-122 9768470263) ALTv (test code = 14 U/L 5-35 1742-6) AST(SGOT) (test code = 18 U/L 13-40 2114266874) eGFR Calculation mL/min/1.73m2 (Non-) (test code = 5358298896) eGFR Calculation mL/min/1.73m2 () (test code = 8793906217) ANGLE (test code = ANGLE) Association of [...] tests). Lab Interpretation Abnormal (test code = 52040-2) [facility]lineXR CHEST 1 [id number] 03:10:33Impression: No acute abnormalities evident. RL: 460 End of Report Ordering Physician: PENELOPE WALTER History: ?Chest pain Technique: Chest,single view Comparison: None Findings: ? The lungs are clear. No pleural effusions are evident. Heart size isnormal. The superior mediastinal silhouette is unremarkable for age andprojection. There arehealed left-sided rib fractures. No acute bonyabnormalities are apparent. [facility], Radiant Results InftUser - 03/16/2020 9:11 PM CSTOrdering Physician: ULYSSES WALTERHistory: Chest painTechnique: Chest, single viewComparison: NoneFindings: The lungs are clear. No pleural effusions are evident. Heart size isnormal. The superior mediastinal silhouette is unremarkable for age andprojection. There are healed l eft-sided rib fractures. No acute bonyabnormalities are apparent.IMPRESSIONImpression:No acute abnormalities evident.RL: 460End of Report [facility]TR[facility] [id number] 02:23:00 Test Item Value Reference Range Interpretation Comments TROPONIN I (test 0.009 ng/mL See_Comment [Automated code = 6347534526) message] The system which generated this result [...] ? Lab Interpretation Normal (test code = 14166-0) [facility]lineN-TERMINAL [id number] 02:23:00 Test Item Value Reference Range Interpretation Comments NT-proBNP (test code 421 pg/mL See_Comment H [Autom ated = 6111413276) message] The system which generated this result transmitted reference range : <=125. The reference range was not used to interpret this result as normal/abnormal . ANGLE (test code = ANGLE) Biotin has been reported to cause a negative bias, interpret results relative to patient's use of biotin. Lab Interpretation Abnormal (test code = 36989-8) [facility] ShorelinePROTHROMBIN TIME / [id number] 02:16:00 Test Item Value Reference Range Interpretation Comments PROTIME PATIENT (test See_Comment L [Auto mated message] code = 5964-2) The system [employer] generated this result transmitted ref erence range: 10.1 - 1 2.6 Seconds. The reference range was not used to int erpret this result as normal/abnormal . INR (test code = 6301-6) Nor mal INR <1.1; Warfarin Therap eutic range 2.0 to 3. 0 or 2.5 to 3.5, dep ending upon the indica tions. Lab Interpretation (test Abnormal code = 51061-7) [facility] CTA CHEST FOR [id number] 02:13:00 [facility] : 1970 Sex: F Name: GABE GRIER [facility] : 1970 Age/S: 49 / F [address] [place] [address] Blvd Unit #: [id number] Loc: [place] [address] Phys: Jay Hanna MD Acct: [id number] Dis Date: Status: REG ER PHONE #: [phone] Exam Date: 03/17/2020 0127 FAX #: [phone] Reason: CHEST P[AIN EXAMS: CPT CODE: [id number] [place] [address] EXAM: CT, CTA CHEST W CONTRAST: 03/17/2020, [...] according to patient size (this includes techniques orstandardized protocols for targeted exams where dose is [...] 1 Signed Report (CONTINUED) Name: GABE GRIER [facility] : 1970 Age/S: 49 / F [address] [place] [address] Unit #: [id number] Loc: [place] [address] Phys:Jay Hanna MD Acct: [id number] Dis Date: Status: REG ER PHONE #: [phone] Exam Date: 03/17/2020126 FAX #: [phone] Reason: CHEST P[AIN EXAMS: CPT CODE: [id number] [place] [address] (Continued) VISUALIZED UPPER ABDOMEN: Small hiatal hernia seen. OSSEOUS STRUCTURES: No acute abnormality seen. IMPRESSION: 1. No segmental pulmonary embolism or thoracic aortic dissection. SL: JSYED-H at 0213 Reported and signed by: Gilbert Sibley M.D. CC: Jay Hanna MD Technologist:Nirmala Roca, RT(R)(CT) CTDI: DLP: Trnscb Date/Time:03/17/2020 (0213) [email or web address].JS38 Orig Print D/T: S: 03/17/2020 (0216) PAGE 2 Signed ReportLIPASE, [id number] 02:11:00 Test Item Value Reference Range Interpretation Comments LIPASE (test code = 3362256849) 165 U/L 0-220 Lab Interpretation (test code = Normal 57149-2) [facility] ShorelineaPTT2021-01-29 02:10:00 Test Item Value Reference Range Interpretation Comments APTT Patient (test code = See_Comment [ Automated message] 4373-2) The system [employer] h generated this result transmitted ref erence range: 26 - 36 Seconds. The re ference range was not u sed to interpret this result as normal/abnor mal. Lab Interpretation (test Normal code = 78640-8) [facility] WITH [id number] 02:05:00 Test Item Value Reference Range Interpretation Comments WBC (test code = See_Comment [Automated 6090-2) message] The sy stem which generated this result transmitted reference range : 4.30 - 11.10 10*3/?L. The reference range was not used to interpret this result as normal/abnormal . RBC (test code = See_Comment [Automated 999-8) message] The sy stem which generated this [...] RDW-SD (test code = 42.3 fL 39-49.9 42531-9) RDW-CV (test code = 12.2 % 12-15.5 788-0) PLT (test code = See_Comment [Automated 777-3) message] The sy stem which generated this result transmitted reference range : 166 - 358 10*3/ ?L. The reference r marian was not used to interpret this result as normal/abnormal . MPV (test code = 10.6 fL 9.5-12.9 96784-3) NRBC/100 WBC (test See_Comment [Automat ed code = 9528122816) message] The system which generated this result transmitted reference range : 0.0 - 10.0 /100 WBCs. The refer ence range was not u sed to interpret th is result as normal/abnormal . NRBC x10^3 (test code <0.01 See_Comment [Auto mated = 0811517335) message] The s ystem which generated this result transmitted reference range : 10*3/?L. The reference range was not used to interpret this result as normal/abnormal . GRAN MAT (NEUT) % 56.1 % (test code = 770-8) IMM GRAN % (test code 0.30 % = 6277201504) LYMPH % (test code = 31.7 % 736-9) MONO % (test code = 7.1 % 5905-5) EOS % (test code = 4.0 % 713-8) BASO % (test code = 0.8 % 706-2) GRAN MAT x10^3(ANC) 4.32 10*3/uL 1.88-7.09 (test code = 4580032239) IMM GRAN x10^3 (test <0.03 0-0.06 code = 2382991265) LYMPH x10^3 (test code 2.44 10*3/uL 1.32-3.29 = 731-0) MONO x10^3 (test code 0.55 10*3/uL 0.33-0.92 = 742-7) EOS x10^3 (test code = 0.31 10*3/uL 0.03-0.39 711-2) BASO x10^3 (test code 0.06 10*3/uL 0.01-0.07 = 704-7) Lab Interpretation Abnormal (test code = 49491-0) [facility] HEAD/BRAIN W/O [id number] 01:54:00 [facility] : 1970 Sex: F Name: GABE GRIER [facility] : 1970 Age/S: 49 / F [address] [place] [address] Blvd Unit #: [id number] Loc: [place] [address] Phys: Jay Hanna MD Acct: [id number] Dis Date: Status: REG ER PHONE #: [phone] Exam Date: 03/17/2020 0126 FAX #: [phone] Reason: HEAD TRAUMA WITH PAINEXAMS: CPT CODE: [id number] CT HEAD/BRAIN W/O CONT 54846 EXAM: CT, CT HEAD/BRAIN W/O CONTRAST: 03/17/2020, [...] the base of brain and posterior fossa BRAIN PARENCHYMA: The brain parenchyma is normal with normal hammer and white interfaces. The periventricular white matter appears unremarkable. No focal mass lesions on this noncontrast head CT. No mass effect, midline shift or edema. There are no intra- axial or extra-axial fluid collections, intraventricular or intraparenchymal hemorrhage. No low attenuation demarcating areas on this non-contrast CT to sug gest subacute stroke. VENTRICLES: The lateral ventricles, third and fourth ventricles appear unremarkable. The basilar cisterns are normal. ORBITS, MASTOIDS AND PARANASAL SINUSES: The visualized orbitsare unremarkable. The visualized paranasal sinuses are unremarkable. Bilateral mastoid effusion. SKUL L: There are no osseous abnormalities. If there is further concern for intracranial pathology or acute stroke, MRI of the brain may be performed for complete assessment. PAGE 1 Signed Report (CONTINUED) Name: GABE GRIER [facility] : 1970 Age/S: 49 / F [address] [place] [address] Unit #: [id number] Loc: [place] [address] Phys: Jay Hanna MD Acct: [id number] Dis Date: Status: REG ER PHONE #: [phone] Exam Date: 03/17/2020 0126 FAX #: [phone] Reason: HEAD TRAUMA WITH PAIN EXAMS: CPT CODE: [id number] CT HEAD/BRAIN W/O CONT 81707 (Continued) IMPRESSION: 1. No acute intracranial abnormality. No noncontrast CT evidence of mass, acute hemorrhage or subacute stroke. 2. Bilateral mastoid effusions. SL: EDER at 0154 Reported and signed by: Gilbert Sibley M.D. CC: Jay Hanna MD Technologist:RT Jose(R)(CT) CTDI: DLP: Trnscb Date/Time: 03/17/2020 (015) Julieth.JS38 Orig Print D/T: S: 03/17/2020 (015)PAGE 2 Signed ReportDRUGS OF ABUSE SCREEN [id number] 01:16:00 Test Item Value Reference Range Interpretation [...] ed for non-medical pur poses. B-TYPE NATRIURETIC [id number] 00:50:00 Test Item Value Reference Range Interpretation Comments B-TYPE NATRIURETIC PEPTIDE (test 50.0 PG/ML 0-100 N code = BNP) BASIC METABOLIC [id number] 00:38:00 Test Item Value Reference Range Interpretation [...] 9.2 mg/dL 8.0-10.5 N CA) HEPATIC FUNCTION [id number] 00:38:00 Test Item Value Reference Range Interpretation [...] 99 IUnit/L 20-125 N code = ALKP) [id number] 00:38:00 Test Item Value Reference Range Interpretation Comments LIPASE (test code = LIP) 74 U/L 13-57 H [id number] 00:38:00 Test Item Value Reference Range Interpretation Comments MAGNESIUM (test code = MAG) 1.91 mg/dL 1.80-2.40 N TSH REFLEX TO [id number] 00:38:00 Test Item Value Reference Range Interpretation Comments TSH REFLEX TO FT4 (test code = 2.39 IU/mL 0.42-5.47 N TSHREFLEX) [id number] 00:38:00 Test Item Value Reference Range Interpretation [...] may tremayne y by method. CBC W/AUTO [id number] 00:28:00 Test Item Value Reference Range Interpretation [...] REQUIRED (test code NO = MDIFF) PROTHROMBIN [id number] 00:27:00 Test Item Value Reference Range Interpretation [...] (to prevent recurrent infar ct). THROMBOPLASTIN TIME [id number] 00:27:00 Test Item Value Reference Range Interpretation Comments THROMBOPLASTIN TIME 31.7 Seconds 25.0-39.5 N Therape utic Range: PARTIAL (test code = 50.4 - 88.3 Seconds PTT) Effective 06/02/2018 [id number] 00:27:00 Test Item Value Reference Range Interpretation Comments D-DIMER (test < 215 ng/mlFEU <=500 N THROMBOSIS A ND/OR PULMONARY code = EMBOLISM AND E CLINICAL DDIMER) CUT- OFF VALUE FOR EXCLUSION (500 ng/mL FEU) OF THESE CONDIT IONSIS VALIDATED BY E SERVER ENGINEER OF THE METHOD. A NEGATIVE D-DI DARIUS RESULT WHEN COMBINED W ITH A CLINICALASSESSM ENT OF LOW PRETEST PROBABI LITY HAS BEEN SHOWN TO H AVEA HIGH NEGATIVE PREDIC TIVE VALUE OF DVT OR PE. D -DIMER VALUES >500 ng/ mL FEU ARE NOT DIAGNOSTIC FOR DVT, PEor DIC WITHOU T OTHER CONFIRMATORY TE STS AND APPROPRIATECLIN ICAL EUALUATIONS. - XR CHEST 1 [id number] 23:38:00 [facility] : 1970 Sex: F FAX: Jay Roth MD [phone] [place]: St: PRE Name: GABE GRIER [facility] Hardy : 1970 Age/S: 49/F [address] [place] [address] Blvd Unit #: [id number] Loc: [place] [address] Phys: Jay Hanna MD Acct: [id number] Dis Date: Status: PRE ER PHONE #: [phone] Exam Date: 03/16/20202328 FAX #: [phone] Reason: Chest Pain EXAMS: CPT CODE: [id number] XR CHEST 1 V 87102 Chest, single view date03/16/2020. HISTORY: Chest pain. [...] of acute cardiopulmonary disease. SL: 131 at 2338 Reported and signed by: Demarco Hayes M.D. CC: Jay Hanna MD Technologist: LEANDRA Elder) Trnscrd Date/Time/By: 03/16/2020 (2328) : By: DorisDMMOrig Print D/T: S: 03/16/2020 (8161) PAGE 1 Signed Report
[2022-06-27 12:05] LABS: Absolute Lymphocytes (CBC) 1.6 K/uL (0.7-4.9); Hematocrit 42.6 % (36.0-45.0); MCV 90.9 fL (80-100); MPV 8.4 fL (7.6-11.3); RBC Red Blood Cell Count 4.69 M/uL (3.86-4.86)
--- NOTE | 2022-06-27 12:16 | RAD REPORT ---
EXAM DESCRIPTION: Cayla Single View06/27/2022 12:03 pm CLINICAL HISTORY: CHEST PAIN COMPARISON: No comparisons TECHNIQUE: Portable AP view of the chest. FINDINGS: The lungs are clear. No pneumothorax or effusion. The cardiomediastinal contours are unrem arkable. Healing/healed left posterolateral seventh and eighth rib fractures. IMPRESSION: No acute cardiopulmonary process. Healing/healed left posterolateral seventh and eighth rib fractures.
[2022-06-27 13:11] LABS: Potassium 3.6 mEq/L (3.5-5.1); Troponin High Sensitivity 5.5 pg/mL (<58.9)
--- NOTE | 2022-06-27 13:51 | EDPHYS ---
Physician Documentation [facility] Name: Caprice Doll Age: 51 yrs Sex: Female : 1970 Arrival Date: 06/27/2022 Time: 11:11 Bed 6 Private MD: ABELINO Physician Venessa Eubanks HPI: 06/27 11:49 This 51 yrs old Female presents to ER via Ambulatory with complaints of Chest Pain. sd2 11:49 51-year-old female with a history of hypertension and diverticulosis presents with sd2 chief complaint central chest pain for the past 2 years that has worsened over the past couple of months. She reports now having some associated dizziness and lightheadedness episodes that started last week. She reports she has been lightheaded throughout the day today but has not had any syncopal episodes. She also endorses associated nausea without vomiting and denies any new abdominal pain. She denies any prior cardiac history but states she did have a hospital work-up including a stress test 2 years ago when all of this first started. She states the work-up was negative but she was given nitroglycerin pills to take for the chest pain. She has not yet taken them. Patient did take 2 aspirin prior to arrival at work today. She also reports a history of early related to heart attacks in 2 of her grandparents at ages 39 and 55.. 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 - Social history:: Smoking status: Patient denies any tobacco usage or history of. Patient/guardian denies using alcohol. ROS: 11:49 Constitutional: Negative for fever, chills, and weight loss, Eyes: Negative for injury, sd2 pain, redness, and discharge. 11:49 Respiratory: Negative for shortness of breath, cough, wheezing. 11:49 : Negative for dysuria, urinary frequency, hesitancy, urgency and hematuria. MS/Extremity: Negative for injury and deformity, Skin: Negative for injury, rash, and discoloration, Neuro: Negative for headache, numbness and tingling. 11:49 Cardiovascular: Positive for chest pain, Negative for edema, palpitations, paroxysmal nocturnal dyspnea. 11:49 Abdomen/GI: Positive for nausea, Negative for abdominal pain, vomiting, diarrhea. Exam: 11:49 Constitutional: This is a well developed, well nourished patient who is awake, alert, sd2 and in no acute distress. Head/Face: Normocephalic, atraumatic. Eyes: EOMI, normal conjunctiva bilaterally Chest/axilla: Normal chest wall appearance and motion. Nontender with no deformity. Cardiovascular: Regular rate and rhythm with a normal S1 and S2. No gallops, murmurs, or rubs. 2+ distal pulses. Respiratory: Lungs have equal breath sounds bilaterally, clear to auscultation and percussion. No rales, rhonchi or wheezes noted. No increased work of breathing, no retractions or nasal flaring. Abdomen/GI: Soft, non-tender, with normal bowel sounds. No guarding or rebound. No evidence of tenderness throughout. Skin: Warm, dry with normal turgor. Normal color with no rashes, no lesions, and no evidence of cellulitis. MS/ Extremity: Pulses equal, no cyanosis. Neurovascular intact. Full, normal range of motion. Ambulatory without difficulty. Psych: Awake, alert, with orientation to person, place and time. Behavior, mood, and affect are within normal limits. 11:49 ECG was reviewed by the Attending Physician. NSR, rate 79, no STEMI criteria, no sd2 significant ST-T wave changes compared to outpatient EKG pt brought with her performed yesterday Vital Signs: 11:26 BP 170 / 116; Pulse 86; Resp 20; Temp 98.1(O); Pulse Ox 100% on R/A; Weight 57.61 kg; ld1 Height 5 ft. 3 in. ; Pain 3/10; 11:51 BP 155 / 98; ld1 12:30 BP 150 / 102; Pulse 89; Resp 16; Pulse Ox 100% ; bp 13:30 BP 148 / 99; Pulse 88; Resp 18; Pulse Ox 100% on R/A; db 14:00 BP 144 / 99; Pulse 87; Resp 18; Pulse Ox 100% ; db 14:45 BP 156 / 116; Pulse 87; Resp 18; Pulse Ox 100% ; db 15:30 BP 153 / 108; Pulse 85; Resp 18; Pulse Ox 100% ; db 11:26 Body Mass Index 22.50 (57.61 kg, 160.02 cm) ld1 11:26 Pain Scale: Adult ld1 MDM: 11:47 Patient medically screened. sd2 11:49 Differential diagnosis: Differential diagnosis includes but is not limited to: ACS, sd2 DVT/PE, pneumothorax, dissection, musculoskeletal, anxiety, anemia, electrolyte abnormality, pneumonia, CHF, COPD among others. HEART Score: History: Moderately Suspicious (1), ECG: Non specific repolarization disturbance / LBTB / PM (1), Age: > 45 and < 65 years (1), Risk Factors: 1 or 2 risk factors (1). The patient was not given aspirin in the Emergency Department. Patient reports taking aspirin within the past 24 hours. Data reviewed: vital signs, nurses notes, EKG. 13:51 HEART Score: Troponin: < or = 1 x Normal Limit (0), Total Score = 3. Consideration of sd2 Admission/Observation Patient was admitted/placed on observation. Management of patient was discussed with the following: Hospitalist: Dr. marquez. I considered the following discharge prescriptions or medication management in the emergency department Pt declined pain medications. Independent interpretation of the following test(s) in the Emergency Department X-Ray: My interpretation is no pneumothorax. Test considered but Not performed: Labs: D-dimer not performed as patient is PERC negative.. CT: PERC negative. Low risk for PE.. External Records Reviewed: Outpatient record: Outpatient EKG. Care significantly affected by the following chronic conditions: Hypertension. Scoring Tools PERC Rule for PE. Counseling: I had a detailed discussion with the patient and/or guardian regarding: the historical points, exam findings, and any diagnostic results supporting the discharge/admit diagnosis, lab results, radiology results, the need for further work-up and treatment in the hospital. ED course: Labs and imaging results discussed with the patient. We did have a conversation discussing options as patient is having active chest pain. Outpatient cardiology follow up and stress testing was discussed but pt was in favor of being admitted for further workup for her chest pain which I believe is most appropriate as well based upon the patient's risk factors and progressively worsening symptoms. She is comfortable with plan for admission and all questions were answered at this time.. ED course: Work-up results discussed with the patient and available family. All questions were answered and the patient is feeling better at the time of admission. Treatment was initiated in the ED but the patient still requires further care in the hospital by the admitting physicians. The case has been discussed in detail with admitting physicians who have excepted care and agree with admission status and decided floor placement. Patient is without questions or concerns at the time of admission.. 06/27 11:29 Order name: Basic Metabolic Panel; Complete Time: 13:42 ld1 06/27 11:29 Order name: CBC with Diff; Complete Time: 12:17 ld1 06/27 11:29 Order name: Troponin HS; Complete Time: 13:42 ld1 06/27 11:47 Order name: BNP; Complete Time: 13:42 sd2 06/27 14:06 Order name: Basic Metabolic Panel [facility] 06/27 14:06 Order name: Basic Metabolic Panel [facility] 06/27 14:06 Order name: CBC with Automated Diff [facility] 06/27 14:06 Order name: CBC with Automated Diff [facility] 06/27 14:06 Order name: Lipid Profile [facility] 06/27 14:06 Order name: Lipid Profile [facility] 06/27 14:06 Order name: Troponin High Sensitivity [facility] 06/27 14:06 Order name: Troponin High Sensitivity [facility] 06/27 14:06 Order name: Troponin High Sensitivity [facility] 06/27 14:06 Order name: Troponin High Sensitivity [facility] 06/27 11:29 Order name: XRAY Chest (1 view); Complete Time: 12:17 [facility] 06/27 14:06 Order name: Echo with Doppler [facility] 06/27 14:06 Order name: Echo with Doppler [facility] 06/27 11:29 Order name: EKG; Complete Time: 11:30 ld1 06/27 14:06 Order name: CONS Physician Consult [facility] 06/27 14:06 Order name: CONS Physician Consult [facility] 06/27 14:06 Order name: Heart Healthy [facility] 06/27 11:29 Order name: Cardiac monitoring; Complete Time: 11:51 ld06/27 11:29 Order name: EKG - Nurse/Tech; Complete Time: 11:29 ld06/27 11:29 Order name: IV Saline Lock; Complete Time: 11:46 ld06/27 11:29 Order name: Labs collected and sent; Complete Time: 11:46 ld1 05 11:29 Order name: O2 Per Protocol; Complete Time: 11:51 ld1 06/27 11:29 Order name: O2 Sat Monitoring; Complete Time: 11:51 ld1 Administered Medications: No medications were administered Disposition Summary: 06/27/22 13:51 Hospitalization Ordered Hospitalization Status: Observation sd2 Provider: Olivia Marquez sd2 Condition: Stable sd2 Problem: an ongoing problem sd2 Symptoms: are unchanged sd2 Bed/Room Type: Standard sd2 Location: Telemetry/MedSurg (observation)(06/27/22 20:05) eb1 Room Assignment: 410(06/27/22 20:05) eb1 Diagnosis - Nonspecific chest pain sd2 - Nausea sd2 - Episodic lightheadedness sd2 Forms: - Medication Reconciliation Form sd2 - SBAR form sd2 Signatures: Dispatcher [employer] EDKalin Nagel RN RN bp Basinger, Emily, RN RN eb1 Priscilla Cleveland RN RN ld1 Venessa Eubanks MD MD sd2 Corrections: (The following items were deleted from the chart) 11:53 11:49 51-year-old female with a history of hypertension and diverticulosis presents sd2 with chief complaint central chest pain for the past 2 years that has worsened over the past couple of months. She reports now having some associated dizziness and lightheadedness episodes that started last week. She reports she has been lightheaded throughout the day today but has not had any syncopal episodes. She also endorses associated nausea without vomiting and denies any new abdominal pain. She denies any prior cardiac history but states she did have a hospital work-up including a stress test 2 years ago when all of this first started. She states the work-up was negative but she was given nitroglycerin pills to take for the chest pain. She has not yet taken them.. sd2 15:39 13:51 Telemetry/MedSurg (observation) sd2 bp 15:39 13:51 sd2 bp 20:05 15:39 [facility] ER HOLD bp eb1 20:05 15:39 ERHOLD- bp eb1
--- NOTE | 2022-06-27 13:51 | ER ---
Nurse's Notes [facility] Name: Caprice Doll Age: 51 yrs Sex: Female : 1970 Arrival Date: 06/27/2022 Time: :11 Bed 6 Private MD: Diagnosis: Nonspecific chest pain;Nausea;Episodic lightheadedness Presentation: 06/27 11:26 Chief complaint: Patient states: Midsternal chest pain radiates to upper left back X 2 ld1 weeks. Dizziness. Coronavirus screen: At this time, the client does not indicate any symptoms associated with coronavirus-19. Ebola Screen: No symptoms or risks identified at this time. Initial Sepsis Screen: Does the patient meet any 2 criteria? No. Patient's initial sepsis screen is negative. Does the patient have a suspected source of infection? No. Patient's initial sepsis screen is negative. Risk Assessment: Do you want to hurt yourself or someone else? Patient reports no desire to harm self or others. Onset of symptoms was June 27, 2022. 11:26 Method Of Arrival: Ambulatory ld1 11:26 Acuity: RODNEY 3 ld1 Triage Assessment: 11:27 General: Appears in no apparent distress. comfortable, Behavior is calm, cooperative, ld1 appropriate for age. Pain: Complains of pain in chest Pain radiates to left scapular area Pain currently is 3 out of 10 on a pain scale. Quality of pain is described as pressure, sharp, shooting, Pain began 2 weeks. EENT: No signs and/or symptoms were reported regarding the EENT system. Neuro: Level of Consciousness is awake, alert, obeys commands, Oriented to person, place, time, situation. Cardiovascular: Capillary refill < 3 seconds Patient's skin is warm and dry. Respiratory: Airway is patent Respiratory effort is even, unlabored. GI: Abdomen is round non-distended. : No signs and/or symptoms were reported regarding the genitourinary system. Derm: No signs and/or symptoms reported regarding the dermatologic system. Musculoskeletal: No signs and/or symptoms reported regarding the musculoskeletal system. 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 - Social history:: Smoking status: Patient denies any tobacco usage or history of. Patient/guardian denies using alcohol. Screenin:31 [facility] ED Fall Risk Assessment (Adult) History of falling in the last 3 months, bp including since admission No falls in past 3 months (0 pts). Abuse screen: Denies threats or abuse. Denies injuries from another. Nutritional screening: No deficits noted. Tuberculosis screening: No symptoms or risk factors identified. Assessment: 12:30 General: SEE TRIAGE NOTE. bp 19:52 Reassessment: Patient appears in no apparent distress at this time. Patient and/or aa9 family updated on plan of care and expected duration. Pain level reassessed. Patient is alert, oriented x 3, equal unlabored respirations, skin warm/dry/pink. Patient denies pain at this time. 20:13 Reassessment: Patient appears in no apparent distress at this time. report given to aaYaa Banks. Vital Signs: 11:26 BP 170 / 116; Pulse 86; Resp 20; Temp 98.1(O); Pulse Ox 100% on R/A; Weight 57.61 kg; ld1 Height 5 ft. 3 in. ; Pain 3/10; 11:51 BP 155 / 98; ld1 12:30 BP 150 / 102; Pulse 89; Resp 16; Pulse Ox 100% ; bp 13:30 BP 148 / 99; Pulse 88; Resp 18; Pulse Ox 100% on R/A; db 14:00 BP 144 / 99; Pulse 87; Resp 18; Pulse Ox 100% ; db 14:45 BP 156 / 116; Pulse 87; Resp 18; Pulse Ox 100% ; db 15:30 BP 153 / 108; Pulse 85; Resp 18; Pulse Ox 100% ; db 11:26 Body Mass Index 22.50 (57.61 kg, 160.02 cm) ld1 11:26 Pain Scale: Adult ld1 ED Course: 11:13 Patient arrived in ED. rg4 11:22 Venessa Eubanks MD is Attending Physician. sd2 11:27 Triage completed. ld1 11:27 Arm band placed on right wrist. EKG completed in triage. Results shown to . ld1 12:05 XRAY Chest (1 view) In Process Unspecified. EDMS 12:29 Kailn Keller, RN is Primary Nurse. bp 12:31 Patient has correct armband on for positive identification. Bed in low position. Call bp light in reach. Side rails up X2. Client placed on continuous cardiac and pulse oximetry monitoring. NIBP monitoring applied. 12:45 Inserted saline lock: 22 gauge in left wrist, using aseptic technique. Blood collected. bp 13:50 Olivia Cruz MD is Hospitalizing Provider. sd2 20:13 No provider procedures requiring assistance completed. Patient admitted, IV remains in aa9 place. Patient maintains SpO2 saturation greater than 95% on room air. Administered Medications: No medications were administered Medication: 20:14 VIS not applicable for this client. aa9 Outcome: 13:51 Decision to Hospitalize by Provider. sd2 20:14 Admitted to Tele accompanied by tech, via wheelchair, room 410, with chart, Report aa9 called to Jocelyn LOGAN 20:14 Condition: stable 20:18 Patient left the ED. aa9 Signatures: Dispatcher [employer] EDMS Brooke Mckeon rg4 Kalin Keller, RN RN Priscilla Mcnamara RN RN ld1 Venessa Eubanks MD MD sd2 Kelli Chester, RN RN aa9 Danielle Crabtree, RN RN db
[2022-06-27] MEDS ORDERED: ACETAMINOPHEN 500 MG TAB PO PRN (14:01)
[2022-06-27] MEDS ORDERED: MORPHINE 2 MG/ML SYR IV PRN (14:32)
[2022-06-27] MEDS: ENOXAPARIN 40 MG/0.4 ML SQ SCH (15:00)
[2022-06-27] MEDS ORDERED: ENOXAPARIN 40 MG/0.4 ML SQ ONE (17:11)
[2022-06-27 18:36] VITALS: BMI 22.4
[2022-06-27] MEDS: METOPROLOL TAR 25 MG TAB PO SCH (20:56)
--- NOTE | 2022-06-27 23:49 | P.HP ---
Certification for Inpatient Patient admitted to: Observation With expected LOS: <2 Midnights Patient will require the following post-hospital care: None Practitioner: I am a practitioner with admitting privileges, knowledge of patient current condition, hospital course, and medical plan of care. Services: Services provided to patient in accordance with Admission requirements found in Title 42 Section 412.3 of the Code of Federal Regulations Patient History Date of Service: 06/27/22 Reason for admission: Chest pain rule out acute coronary syndrome History of Present Illness: Patient is a 51-year-old female with a strong family history of coronary artery disease who comes into the emergency room with chest discomfort. Pain is mainly in the sternal region. It feels like something is tugging at her chest. Patient states she has a strong family history of chest pain. 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 She works in the [employer] Since her chest pain was not improving she decided to come into the hospital for further evaluation. At this time, patient will be admitted for further evaluation. Allergies diazepam [From Valium] Allergy (Verified 06/27/22 17:29) Itching nickel Allergy (Verified 06/27/22 17:29) Itching sulfamethoxazole [From Bactrim] Allergy (Verified 06/27/22 17:29) Itching trimethoprim [From Bactrim] Allergy (Verified 06/27/22 17:29) Itching Home Medications: Lisinopril [Zestril] 10 mg PO BEDTIME 06/27/22 - Past Medical/Surgical History Diabetic: No -: Hypertension Past Surgical History: Patient denies surgical history - Family History Father Medical History: Heart disease - Social History Smoking Status: Never smoker Alcohol use: No CD- Drugs: No Place of Residence: Home Review of Systems 10-point ROS is otherwise unremarkable Physical Examination - Vital Signs Temperature: 98.1 F Blood Pressure: 142/84 Pulse: 85 Respirations: 16 Pulse Ox (%): 97 - Physical Exam General: Alert, In no apparent distress, Oriented x3 HEENT: Atraumatic, PERRLA, Mucous membr. moist/pink, EOMI, Sclerae nonicteric Neck: Supple, 2+ carotid pulse no bruit, No LAD, Without JVD or thyroid abnormality Respiratory: Clear to auscultation bilaterally, Normal air movement Cardiovascular: Regular rate/rhythm, Normal S1 S2, No murmurs Gastrointestinal: Normal bowel sounds, Soft and benign, Non-distended, No tenderness Musculoskeletal: No clubbing, No swelling, No tenderness Integumentary: No rashes Neurological: Normal gait, Normal speech, Normal strength at 5/5 x4 extr, Normal tone, Sensation intact, Cranial nerves 3-12 intact, Normal affect Lymphatics: No axilla or inguinal lymphadenopathy - Studies Laboratory Data (last 24 hrs) 06/27/22 12:43: Sodium 139, Potassium 3.6, BUN 15, Creatinine 0.66, Glucose 82 06/27/22 11:54: WBC 6.00, Hgb 14.3, Hct 42.6, Plt Count 338 Assessment & Plan - Problems (Diagnosis) (1) Chest pain, rule out acute myocardial infarction Current Visit: Yes Status: Acute (2) Family history of heart disease Current Visit: Yes Status: Acute (3) History of hypertension Current Visit: Yes Status: Acute - Plan 1. Serial troponins and EKG 2. Appreciate Cardiology consultation 3. Echocardiogram and stress test if cardiology is agreeable 4. Anti-platelet therapy, anti coagulation, beta-darleen, statin, and O2 as needed 5. IV morphine for pain 6. Nitro p.r.n. Discharge Plan: Home Plan to discharge in: 24 Hours - Advance Directives Does patient have a Living Will: No Does patient have a Durable POA for Healthcare: No - Code Status/Comfort Care Code Status Assessed: Yes Code Status: Full Code Critical Care: No Time Spent Managing PTS Care (In Minutes): 35
[2022-06-28 05:12] LABS: Absolute Lymphocytes (CBC) 1.9 K/uL (0.7-4.9); Hematocrit 38.8 % (36.0-45.0); Lymphocytes % 36.9 % (15.3-44.8); MCV 90.1 fL (80-100); MPV 8.5 fL (7.6-11.3); RBC Red Blood Cell Count 4.31 M/uL (3.86-4.86)
[2022-06-28 05:22] LABS: Potassium 3.9 mEq/L (3.5-5.1)
[2022-06-28 05:27] LABS: Troponin High Sensitivity 6.1 pg/mL (<58.9)
[2022-06-28] MEDS ORDERED: REGADENOSON 0.4 MG/5 ML SYR IV ONE (07:30)
[2022-06-28] MEDS: ENOXAPARIN 40 MG/0.4 ML SQ SCH (09:00)
[2022-06-28] MEDS ORDERED: ASPIRIN EC 81 MG TAB PO SCH (09:00)
[2022-06-28] MEDS: METOPROLOL TAR 25 MG TAB PO SCH (09:00)
[2022-06-28 11:21] VITALS: BP 146/92; TEMP 97.6; O2SAT 97
--- NOTE | 2022-06-28 12:35 | RAD REPORT ---
EXAM DESCRIPTION: NM - Rest Stress Cardiac Imaging - 06/28/2022 8:21 am CLINICAL HISTORY: CP Chest pain. COMPARISON: No comparisons TECHNIQUE: The patient was administered approximately 10mCi of Tc 99m Sestamibi prior to resting SPE CT imaging of the heart. The patient was then administered approximately 30 mCi of Tc 99m Sestamibi f ollowing exercise or pharmacologic stress. Multiplanar SPECT images were reviewed. FINDINGS: No stress induced ischemic defect is seen to suggest stress induced ischemia. No fixed def ect is seen to suggest hibernating myocardium or scarred myocardium. The end diastolic volume is 84 ml, the end systolic volume is 46 ml, and the ejection fraction is 46 %. IMPRESSION: No stress induced ischemia.
--- NOTE | 2022-06-28 12:50 | CON ---
Date of Consultation: 06/28/2022 Reason For Consultation: Atypical chest pain. History Of Present Illness: Ms. Chance is 51, strong family history of heart disease, history of hypert ension, left-sided chest pain, atypical, sharp, stabbing, not exertional. No association with nausea , vomiting, diaphoresis, PND, orthopnea, pedal edema, palpitations, or syncope. So far, negative EKG , negative troponin, negative BNP. Patient does not have diabetes and does not smoke. Past Medical History: Her only past medical history is hypertension. Allergies: TO VALIUM, BACTRIM, AND NICKEL. Review of Systems: Negative. Social History: Negative. Family History: Positive. Medication: At home included lisinopril. Physical Examination: Vital Signs: Stable. Afebrile. HEENT: Negative. Neck: Supple with no bruit. Chest: Clear. Cardiac: Normal. Abdomen: Benign. Extremities: No clubbing, cyanosis, or edema. Diagnostic Data: As stated earlier. Impression And Plan: A 51-year-old with history of hypertension, family history of heart disease, at ypical chest pain. Echocardiogram and Lexiscan are pending. We will see what those showed before making final decision. I do not thin k the pain is cardiac. NB/MODL Voice ID: [id number] Report ID: [id number]
--- NOTE | 2022-06-28 13:21 | ECHO ---
HEIGHT: 5 ft 3 in WEIGHT: 127 lb 0 oz DATE OF STUDY: 06/28/[address]: Olivia Cruz MD 2-DIMENSIONAL: YES M.MODE: YES DOPPLER: YES COLOR FLOW: YES TDS: NO PORTABLE: NO DEFINITY: NO BUBBLE STUDY: NO DIAGNOSIS: CHEST PAIN CARDIAC HISTORY: CATHERIZATION: SURGERY: PROSTHETIC VALVE: PACEMAKER: MEASUREMENTS (cm) DIASTOLIC (NORMALS) SYSTOLIC (NORMALS) IVSd 1.0 (0.6-1.2) LA Diam 3.1 (1.9-4.0) LVEF 42% LVIDd 4.6 (3.5-5.7) LVIDs 3.6 (2.0-3.5) %FS 21% LVPWd 1.1 (0.6-1.2) Ao Diam 2.8 (2.0-3.7) 2 DIMENSIONAL ASSESSMENT: RIGHT ATRIUM: NORMAL LEFT ATRIUM: NORMAL RIGHT VENTRICLE: NORMAL LEFT VENTRICLE: NORMAL TRICUSPID VALVE: NORMAL MITRAL VALVE: NORMAL PULMONIC VALVE: NORMAL AORTIC VALVE: NORMAL PERICARDIAL EFFUSION: NONE AORTIC ROOT: NORMAL LEFT VENTRICULAR WALL MOTION: MILD GLOBAL HYPOKINESIS. DOPPLER/COLOR FLOW: NORMAL. COMMENTS: MILD GLOBAL HYPOKINESIS EJECTION FRACTION 42% NO EFFUSON TECHNOLOGIST: STEPHANIE MOORE
--- NOTE | 2022-06-28 13:34 | TREADPHA ---
DX: CHEST PAIN Date of Study: 06/28/22 Ht: 5' 3 " Wt: 127 lb 0 oz Consulting Physician: MARGO MEDICATIONS: NO MEDICATIONS THIS AM HISTORY: 51 YEAR OLD FEMALE WITH COMPLAINTS OF CHEST PAIN, 4 ON 0-10 PAIN SCALE. PATIENT HAS HISTORY OF HTW PHYSICIAL EXAMINATION: RESTING B.P.: 136/90 RESTING H.R.: 78 RESTING EKG: NORMAL SINUS RHYTHM PROTOCOL: LEXISCAN EXERCISE TIME: 3:30 B.P. AT PEAK STRESS: 127/87 IMPRESSION: LEXISCAN INJECTED, CARDIOLITE INJECTED - SEE NUCLEAR MEDICINE REPORT. PATIENT STATES CHEST PAIN OF 5 ON 0-10 PAIN SCALE WHICH RESOLVED ON RECOVERY. PATIENT DENIES OTHER SYMPTOMS. NO SUPRA VENTRICULAR TACHYCARDIA, VENTRICULAR TACHYCARDIA, PREMATURE ATRIAL COMPLEXES, PREMATURE VENTRICULAR COMPLEXES NOTED.
--- NOTE | 2022-07-01 11:47 | EKG ---
Test Date: 2022-06-27 Test Time: 11:33:03 Case Technician: YVONNE MEASUREMENT RESULTS: Intervals: Rate: 79 [place]: 178 QRSD: 78 QT: 372 QTc: 426 [place]: P: 60 NJ: 178 QRS: 7 T: 56 INTERPRETIVE STATEMENTS: Normal sinus rhythm Nonspecific T wave abnormality Abnormal ECG No previous ECG available for comparison Electronically Signed On 07-01-22 11:42:03 CDT by Kerwin Lowry
== END 2022-06-28 14:37 | disposition home or self-care (01) ==
LOC: ER 11:11 → ERHOLD 14:01 → 4TH 20:11
PROVIDERS: ADMIT Hospitalist; ATTEND Hospitalist
DX: R07.9 Chest pain, unspecified (principal); I10 Essential (primary) hypertension; Z82.49 Family history of ischemic heart disease and other diseases of the circulatory system; Z88.1 Allergy status to other antibiotic agents; Z88.2 Allergy status to sulfonamides; Z91.09 Other allergy status, other than to drugs and biological substances
CPT/HCPCS: 93005; 93017; 93306; 85025 ×2; 80048 ×2; 36415; 80061; 84484 ×4; 83880; 71045; 78452; 99285; J2785; J1650; A9500; G0378 ×4

== ENCOUNTER 2024-01-30 13:16 | Emergency (ER) | payer OTHER ==
[2024-01-30 14:22] LABS: Absolute Basophils 0.1 K/uL (0-0.5); Absolute Eosinophils 0.3 K/uL (0-0.5); Absolute Lymphocytes (CBC) 1.6 K/uL (0.7-4.9); Absolute Monocytes 0.5 K/uL (0.1-1.3); Absolute Neutrophil 3.2 K/uL (1.8-8.0); Eosinophils % 5.6 % (0-4.4); Hematocrit 40.2 % (36.0-45.0); Hemoglobin 13.8 g/dL (12.0-15.0); Lymphocytes % 28.2 % (15.3-44.8); MCH 31.4 pg (27.0-35.0); MCHC 34.5 g/dL (32.0-36.0); MCV 91.2 fL (80-100); MPV 8.3 fL (7.6-11.3); Neutrophils % 57.2 % (41.7-73.7); Nucleated Red Blood Cells % 0.1 % (0-0); Platelets 270 thou/uL (152-406); RBC Red Blood Cell Count 4.41 M/uL (3.86-4.86); Red Cell Distribution Width 12.2 % (12.1-15.2)
[2024-01-30 14:49] LABS: ALT/SGPT 24 U/L (13-56); AST/SGOT 11 U/L (15-37); Albumin 3.6 g/dL (3.4-5.0); Albumin/Globulin Ratio 1.2 (1.1-1.8); Alkaline Phosphatase 73 U/L (45-117); BUN Blood Urea Nitrogen 14 mg/dL (7-18); Bicarbonate 29 mEq/L (21-32); Bilirubin Total 0.5 mg/dL (0.2-1.0); Globulin 3.1 g/dL (2.3-3.5); Glomerular Filtration Rate 76 ml/min (=/>90); Glucose Level 96 mg/dL (74-106); NT PRO-BNP 302 pg/mL (<125); Protein, Total 6.7 g/dL (6.4-8.2); Sodium Level 139 mEq/L (136-145); Troponin High Sensitivity 3.5 pg/mL (<58.9)
--- NOTE | 2024-01-30 14:49 | RAD REPORT ---
EXAM: Chest Single View HISTORY: CHEST PAIN COMPARISON: 06/27/2022 FINDINGS: LUNGS/PLEURA: The lungs are clear. No pleural effusions or pneumothorax. No pulmonary edema. MEDIASTINUM: The mediastinal silhouette is within normal limits. CARDIAC: The cardiac silhouette is within normal limits. UPPER ABDOMEN: No significant abnormality. BONES: No acute fracture. LINES/TUBES/OTHER: N/A IMPRESSION: No evidence of acute cardiopulmonary disease.
[2024-01-30 14:51] LABS: Bilirubin Direct < 0.2 mg/dL (0-0.2); Bilirubin Indirect, Calculated 0.3 mg/dL (0.2-0.8)
--- NOTE | 2024-01-30 14:59 | EDPHYS ---
Physician Documentation [facility] Name: Caprice Chance Age: 53 yrs Sex: Female : 1970 Arrival Date: 01/30/2024 Time: 13:16 Bed 17 Private MD: ED Physician Cachorro Adair HPI: 01/29 13:25 This 53 yrs old Female presents to ER via Ambulatory with complaints of Chest Pain, kb Dizziness. 13:25 Pt is a 53 year old female who presents for chest pain that started months ago and kb dizziness upon movement that started 6 days ago. States she has been seen by PCP and cardiology for the chest pain, had a normal stress test. States she has a history of PVCs. Denies palpitations at this time. . Historical: - Allergies: 13:23 Valium; ko1 13:23 Bactrim; ko1 13:23 Nickel; ko1 - Home Meds: 13:23 Unable to obtain [Active]; ko1 - PMHx: 13:23 Diverticulitis; Hypertensive disorder; ko1 - PSHx: 13:23 None; ko1 - Immunization history:: Adult Immunizations up to date. - Infectious Disease History:: Denies. - Social history:: Smoking status: Patient denies any tobacco usage or history of. ROS: 13:25 Constitutional: As per HPI kb Exam: 13:25 Constitutional: This is a well developed, well nourished patient who is awake, alert, kb and in no acute distress. Head/Face: Normocephalic, atraumatic. ENT: Moist Mucous membranes Cardiovascular: Regular rate Respiratory: Respirations even and unlabored. No increased work of breathing. Talking in full sentences Skin: Warm, dry with normal turgor. Normal color. MS/ Extremity: Pulses equal, no cyanosis. Neurovascular intact. Full, normal range of motion. Neuro: Awake and alert, GCS 15, oriented to person, place, time, and situation. 13:34 ECG was reviewed by the Attending Physician. kb Vital Signs: 13:22 BP 173 / 102; Pulse 84; Resp 16; Temp 97.2; Pulse Ox 100% on R/A; ko1 13:27 BP 159 / 99; ko1 14:22 BP 145 / 92 Supine; Pulse 67; nh2 14:22 BP 137 / 95 Sitting; Pulse 75; nh2 14:23 BP 136 / 92 Standing; Pulse 74; nh2 MDM: 13:19 Medical Screening Exam initiated kb 13:26 Differential diagnosis: arrhythmia, acute mi, dehydration, abnormal electrolytes. Data kb reviewed: vital signs, nurses notes. Historians other than the Patient: Spouse/Significant Other: . 14:57 Counseling: I had a detailed discussion with the patient and/or guardian regarding the kb historical points, exam findings, and any diagnostic results supporting the discharge/admit diagnosis, lab results, radiology results, the need for outpatient follow up, a verify rep, a family practitioner, to return to the emergency department if symptoms worsen or persist or if there are any questions or concerns that arise at home. ED course: Pt updated on results. Educated that I had ordered fluids and meclizine for symptoms. Pt states she can drink fluids at home, does not want the meclizine because it makes her sleepy. States she has an appt with PCP at 5pm today so she will go to that and get a referral to cardiology. . 01/29 13:25 Order name: Basic Metabolic Panel; Complete Time: 14:52 kb 01/29 13:25 Order name: CBC with Diff; Complete Time: 14:34 kb 01/29 13:25 Order name: LFT's; Complete Time: 14:52 kb 01/29 13:25 Order name: Magnesium; Complete Time: 14:52 kb 01/29 13:25 Order name: NT PRO-BNP; Complete Time: 14:52 kb 01/29 13:25 Order name: Troponin HS; Complete Time: 14:52 kb 01/29 13:25 Order name: XRAY Chest (1 view); Complete Time: 14:52 kb 01/29 13:25 Order name: EKG; Complete Time: 13:25 kb 01/29 13:25 Order name: Cardiac monitoring; Complete Time: 14:15 kb 01/29 13:25 Order name: EKG - Nurse/Tech; Complete Time: 13:35 kb 01/29 13:25 Order name: IV Saline Lock; Complete Time: 14:13 kb 01/29 13:25 Order name: Labs collected and sent; Complete Time: 14:13 kb 01/29 13:25 Order name: O2 Per Protocol; Complete Time: 14:15 kb 01/29 13:25 Order name: O2 Sat Monitoring; Complete Time: 14:15 kb 01/29 13:25 Order name: Orthostatics; Complete Time: 14:24 kb EC:34 Rate is 77 beats/min. Rhythm is regular. QRS [place] is Normal. PA interval is normal at kb 196 msec. QRS interval is normal at 76 msec. QT interval is normal at 436 msec. Administered Medications: 14:59 Not Given (Patient Refused): ns 0.9% 1000 ml IV at 1000 ml once; to be given as a bolus kc6 over 60 minutes 14:59 Not Given (Patient Refused): [id number] mg PO once kc6 Disposition Summary: 01/30/24 14:59 Discharge Ordered Notes: Location: Home kb Condition: Stable kb Diagnosis - Chest pain, unspecified kb - Dizziness and giddiness kb Followup: kb - With: Emergency Department - When: As needed - Reason: Worsening of condition Followup: kb - With: Private Physician - When: 2 - 3 days - Reason: Recheck today's complaints, Continuance of care, Re-evaluation by your physician Discharge Instructions: - Discharge Summary Sheet kb - Nonspecific Chest Pain, Adult, [id number] kb - Dizziness, [id number] kb Forms: - Medication Reconciliation Form kb - Antibiotic Education kb - Prescription Opioid Use kb - Patient Portal Instructions kb - Leadership Thank You Letter kb Signatures: Dispatcher [employer] Yamileth Hughes, HAND SHAPER-C HAND SHAPER-Ckb Irish Modi, RN RN ko1 Yue Sewell RN kc6 Corrections: (The following items were deleted from the chart) 13:25 13:25 BASIC METABOLIC PANEL+C.LAB.BRZ ordered. EDMS EDMS 13:25 13:25 CBC+H.LAB.BRZ ordered. EDMS EDMS 13:25 13:25 HEPATIC FUNCTION+C.LAB.BRZ ordered. EDMS EDMS 13:25 13:25 MAGNESIUM+C.LAB.BRZ ordered. EDMS EDMS 13:25 13:25 PROBNP+C.LAB.BRZ ordered. EDMS EDMS 13:25 13:25 Troponin High Sensitivity+C.LAB.BRZ ordered. EDMS EDMS
--- NOTE | 2024-01-30 14:59 | ER ---
Nurse's Notes [facility] Name: Caprice Chance Age: 53 yrs Sex: Female : 1970 Arrival Date: 01/30/2024 Time: 13:16 Bed 17 Private MD: Diagnosis: Chest pain, unspecified;Dizziness and giddiness Presentation: 01/29 13:22 Chief complaint: Patient states: chest pain for months, now I'm getting dizzy and ko1 appears to be positional. Coronavirus screen: At this time, the client does not indicate any symptoms associated with coronavirus-19. Ebola Screen: No symptoms or risks identified at this time. Initial Sepsis Screen: Does the patient meet any 2 criteria? No. Patient's initial sepsis screen is negative. Does the patient have a suspected source of infection? No. Patient's initial sepsis screen is negative. Risk Assessment: Do you want to hurt yourself or someone else? Patient reports no desire to harm self or others. Onset of symptoms is unknown. 13:22 Method Of Arrival: Ambulatory ko1 13:22 Acuity: RODNEY 3 ko1 Triage Assessment: 13:23 General: Appears in no apparent distress. Behavior is calm, cooperative, appropriate ko1 for age. Pain: Complains of pain in chest. Cardiovascular: Reports chest pain, lightheadedness. Historical: - Allergies: 13:23 Valium; ko1 13:23 Bactrim; ko1 13:23 Nickel; ko1 - Home Meds: 13:23 Unable to obtain [Active]; ko1 - PMHx: 13:23 Diverticulitis; Hypertensive disorder; ko1 - PSHx: 13:23 None; ko1 - Immunization history:: Adult Immunizations up to date. - Infectious Disease History:: Denies. - Social history:: Smoking status: Patient denies any tobacco usage or history of. Assessment: 15:38 Reassessment: pt left before signing discharge paperwork. unknown if IV discontinued, kcAra attempted to contact pt twice with no answer at this time. DESMOND Pacheco made aware. Vital Signs: 13:22 BP 173 / 102; Pulse 84; Resp 16; Temp 97.2; Pulse Ox 100% on R/A; ko1 13:27 BP 159 / 99; ko1 14:22 BP 145 / 92 Supine; Pulse 67; nh2 14:22 BP 137 / 95 Sitting; Pulse 75; nh2 14:23 BP 136 / 92 Standing; Pulse 74; nh2 ED Course: 13:18 Patient arrived in ED. im 13:19 Yamileth Stone FNP-C [facility]. kb 13:19 Cachorro Adair MD is Attending Physician. kb 13:23 Triage completed. ko1 13:23 Arm band placed on right wrist. Patient placed in waiting room, Patient notified of ko1 wait time. 13:47 Yue Sewell, RN is Primary Nurse. kc6 14:13 Basic Metabolic Panel Sent. em1 14:13 CBC with Diff Sent. em1 14:13 LFT's Sent. em1 14:13 Magnesium Sent. em1 14:13 NT PRO-BNP Sent. em1 14:13 Troponin HS Sent. em1 14:13 Initial lab(s) drawn, by me, sent to lab. Inserted saline lock: 20 gauge in left em1 antecubital area, using aseptic technique. Blood collected. Flushed with 10 mL NS. 14:46 XRAY Chest (1 view) In Process Unspecified. EDMS Administered Medications: 14:59 Not Given (Patient Refused): ns 0.9% 1000 ml IV at 1000 ml once; to be given as a bolus kc6 over 60 minutes 14:59 Not Given (Patient Refused): [id number] mg PO once kc6 Outcome: 14:59 Discharge ordered by . kb 15:38 Discharged to home ambulatory, with significant other, kc6 15:38 Condition: good 15:39 Patient left the ED. kc6 Signatures: Dispatcher [employer] EDMS Yamileth Stone FNP-C FNP-Ckb Martinez, Eric em1 Yue Sewell, RN RN kc6 Irish Modi RN RN ko1 Alana Mcdaniel Beto , Robin nh2
[2024-01-30 15:52] VITALS: TEMP 97.2; O2SAT 100
[2024-01-30 16:04] VITALS: BP 136/92
--- NOTE | 2024-02-03 12:09 | EKG ---
Test Date: 2024-01-30 Test Time: 13:31:43 Extrusion Die Repairer: MANUEL MEASUREMENT RESULTS: Intervals: Rate: 77 NE: 196 QRSD: 76 QT: 386 QTc: 436 [place]: P: 70 NE: 196 QRS: 16 T: 51 INTERPRETIVE STATEMENTS: Normal sinus rhythm Normal ECG No previous ECG available for comparison Electronically Signed On 02-03-24 12:05:35 RESERVOIR ENGINEER by Nick Lozano
== END 2024-01-30 15:39 | disposition home or self-care (01) ==
LOC: ER 13:16
DX: R07.9 Chest pain, unspecified (principal); R42 Dizziness and giddiness; I10 Essential (primary) hypertension
CPT/HCPCS: 36415; 71045; 80048; 80076; 83735; 83880; 84484; 85025; 93005; 99283